=== PATIENT | female | born 1940 | race Caucasian/White ===

== ENCOUNTER → 2016-09-27 | Outpatient (CLI) | payer MEDICARE, BC ==
[~2016-09-27] MED LIST: ADVAIR 250/5028 PUFF IN; ALBUTEROL2.5 MG/NEB IH; ASPIRIN 81MG TA81 MG PO; ASPIRIN CHILDRE81 MG PO; AZELASTINE137 MCG/Ac; BUDESONIDE0.5 MG/2 M IH; CELEXA40 MG PO; CIPRO 500MG TA500 MG PO; CRESTOR10 MG PO; DIFLUCAN150 MG PO; DILANTIN 100MG100 MG PO; DUONEB 3 MG/3 ML3 ML IH; GABAPENTIN300 M1 PO; HYDROCHLOROTHIA25 M1 PO; IPRATROPIUM 2.2.5 ML IH; KAPIDEX60 MG PO; LEVAQUIN500 MG PO; LORTAB 5/500 501 TAB PO; LOSARTAN POTAS100 MG PO; LOSARTAN POTASS50 MG PO; MAGMTHWSH PO; MECLIZINE 25MG25 MG PO; MELOXICAM15 MG PO; METOPROLOL25 MG PO; NEXIUM10 MG/PACK PO; NORVASC10 MG PO; OMNICEF 300 MG300 MG PO; PERFOROMIS20 MCG/2 M IH; PHENERGAN 25MG.25 M1 PO; PREDNISONE 20MG20 MG PO; RANITIDINE HCL300 M1 PO; REGLAN 5MG TABLE5 MG PO; ROPINIROLE HYD0.5 MG PO; RT-ACCUNEB S3 ML/AMP IN; SPIRIVA HA1 PUFF/INH IH; SPORANOX100 MG PO; TAMIFLU75 MG PO; TEMAZEPAM15 MG PO; TUDORZA PR400 MCG/Ac IH; TYLENOL WITH CO1 TA1 PO; VITAMIN D1000 IU PO; XOPENEX HF0.045 MG/A IH; ZITHROMAX Z-PA250 M1 PO; ZOFRAN4 MG PO; [UNRECOGNIZED DRUG - REMARK] PO
[2016-09-27 10:08] LABS: CORONAVIRUS 229E NOT DETECTED (NOT DETECTE); CORONAVIRUS HKU 1 NOT DETECTED (NOT DETECTE); CORONAVIRUS NL63 NOT DETECTED (NOT DETECTE); CORONAVIRUS OC43 NOT DETECTED (NOT DETECTE); RHINOVIRUS/ENTEROVIRUS NOT DETECTED (NOT DETECTE)
[2016-09-27 10:28] LABS: LYMPH # 1.9 K/mm3 (0.7-4.5); LYMPH % 24.1 % (10-50.0)
[2016-09-27 10:29] LABS: HEMOGLOBIN 13.7 g/dL (12.2-16.2)
[2016-09-27 13:01] LABS: BUN 18 mg/dL (7-18)
[2016-09-27 13:14] LABS: GFR (ESTIMATED) 54 ML/MIN (59-)
== END ==
LOC: LAB 10:07
PROVIDERS: Internal Medicine Adolescent Medicine
DX: R05 Cough (principal)

== ENCOUNTER → 2017-02-09 | Outpatient (CLI) | payer MEDICARE, BC ==
--- NOTE | 2017-02-10 10:42 | RADIOLOGY REPORT PS360 ---
CTA-ABD AORTA YANETH ILEOFEM RO CLINICAL INDICATION: Lower extremity pain, claudication INTERMITTENT CLAUDICATION ORDERING PHYSICIAN: Sincere Israel MD PATIENT AGE: 76 years COMPARISON: None TECHNIQUE: Axial images obtained following the intravenous bolus administration 120 mL's of Isovue-370. Sagittal and coronal reformatted images are also reviewed. FINDINGS: Abdominal aorta no evidence of abdominal aortic aneurysm or occlusion. Mild atheromatous changes are present involving the aorta and iliac vessels. The proximal aspect of the renal arteries have an unremarkable appearance. There is some mild dilatation and be seen of the mid and distal aspect of the left main renal artery. No significant stenosis is evident. Fibromuscular dysplasia is considered.. There is mild dilatation of the distal aspect of the right internal iliac artery at 13 mm and mild dilatation of the mid aspect of the left internal iliac artery at 12 mm. No iliac stenosis evident. Right lower extremity runoff: Mild atheromatous changes are present involving the superficial femoral artery. No significant stenosis evident. There is three-vessel runoff in the calf. The vessels at the ankle are not well opacified. Three-vessel runoff is noted to the lower leg on the right and may not be visible at the ankle due to the timing of contrast injection. Left lower extremity runoff: Mild atheromatous changes of the superficial femoral artery with less than 50% stenosis of the mid aspect of the left SFA. Three-vessel runoff is noted to the lower leg on the left and may not be visible at the ankle due to the timing of injection. Nonvascular findings: There is a 3 cm right renal cyst. There is been a prior cholecystectomy. There are post hysterectomy changes. There are emphysematous changes noted in the lung bases. IMPRESSION: 1. There are mild atheromatous changes but no hemodynamic significant stenotic lesions are evident within the aorta, iliac vessels, or bilateral artery runoff 2. Mild fusiform dilatation with beading of the mid and distal aspect of the left renal artery suspicious for fibromuscular dysplasia. 3. Emphysematous changes in the lower lobes
== END ==
LOC: RAD 11:20
DX: I70.213 Atherosclerosis of native arteries of extremities with intermittent claudication, bilateral legs (principal)
CPT/HCPCS: Q9967

== ENCOUNTER → 2017-05-23 | Outpatient (CLI) | payer MEDICARE, BC ==
[2017-05-23 14:34] LABS: HEMOGLOBIN 12.5 g/dL (12.2-16.2); LYMPH # 1.6 K/mm3 (0.7-4.5)
[2017-05-23 16:00] LABS: BUN 24 mg/dL (7-18)
[2017-05-23 16:11] LABS: GFR (ESTIMATED) 61 ML/MIN (59-)
== END ==
LOC: CARL-LAB 09:59
PROVIDERS: Internal Medicine Adolescent Medicine
DX: L29.9 Pruritus, unspecified (principal); R53.81 Other malaise

== ENCOUNTER 2017-06-10 12:44 | Emergency (ER) | payer MEDICARE, BC ==
[~2017-06-10] VITALS: Ht 165.1 cm; Wt 64.0 kg
--- OUTSIDE RECORDS SUMMARY | 2017-06-10 12:50 | External Medical Summary Rpt | CCD ---
Author Author , RENATA YANEZ Address Unknown Phone [email or web address] Care Team Providers Care Air Support Operations Operator Name Role Phone Sincere Israel MD, Unavailable Unavailable Sincere Israel MD Purpose Continuity of Care Document - 04-14-2011 through 2016 Problems Code Diagnosis DOS Provider Status 486 [facility] 496 Chronic [place] obstructive [facility] lung [facility] disease 786.09 Dyspnea [facility] I73.9 PERIPHERAL VASCULAR DISEASE, UNSPECIFIED J43.9 EMPHYSEMA, UNSPECIFIED Allergies, Adverse Reactions, Alerts Type Allergy to substance Adverse Reaction to Substance Substance Reaction Severity INGREDIENT: NO KNOWN Unknown Unknown - NO KNOWN DRUG ALLERGY Medications Na ND Rx Da Fi Fi Am Da Di Ph RX Ph St me C No te ll ll ou ys ag ar # ys at rm s nt no ma ic us Or Da si cy ia de te s n re d Me 51 07 2 No to 07 -1 cl 90 0- Lo op 62 20 ng ra 92 13 er mi 0 de Ac ti 5M ve G Ta bl et Rankin 51 07 2 No cr 07 -1 al 90 0- Lo fa 87 20 ng te 12 13 er 0 1G Ac M ti Ta ve bl et PA 51 07 2 No NT 07 -1 OP 90 0- Lo RA 05 20 ng ZO 12 13 er LE 0 Ac SO ti D ve DR 40 MG TA B AD 00 07 2 No VA 17 -1 IR 30 0- Lo 69 20 ng 25 60 13 er 0- 4 50 Ac ti DI ve SK US LE 25 07 3 No VO 02 -0 FL 10 9- Lo OX 13 20 ng AC 28 13 er IN 3 Ac 75 ti 0 ve MG /1 50 ML -D 5W PI 00 07 3 No PE 40 -0 RA 93 9- Lo CI 38 20 ng L- 51 13 er TA 3 ZO Ac BA ti CT ve 3. 37 5 GM VL SO 00 07 3 No DI 40 -0 UM 97 9- Lo 98 20 ng CH 43 13 er LO 6 RI Ac DE ti ve 0. 9% SO JASPAL TI ON LO 00 07 3 No VE 07 -0 NO 50 9- Lo X 62 20 ng 40 04 13 er 1 MG Ac /0 ti .4 ve ML SY RI NG E IP 00 07 3 No RA 48 -0 T- 70 9- Lo AL 20 20 ng BU 10 13 er T 1 0. Ac 5- ti 3( ve 2. 5) MG /3 ML AC 00 07 3 No ET 57 -0 YL 40 9- Lo CY [address] 50 13 er EI 0A NE Ac ti 20 ve % 1M L SY R (R T Me 00 07 3 No th 00 -0 yl 90 9- Lo pr 19 20 ng ed 00 13 er ni 9 so Ac lo ti ne ve So d Rankin cc in a MO 00 07 3 No RP 52 -0 HI 71 9- Lo NE 42 20 ng 56 13 er RANKIN 2 LF Ac ti 10 ve 0 MG /[address] TE 51 07 3 No MA 07 -0 ZE 90 9- Lo PA 41 20 ng M 82 13 er 15 0 Ac MG ti ve CA PS UL E RE 00 07 3 No QU 00 -0 IP 74 9- Lo 89 20 ng 0. 02 13 er 25 0 Ac MG ti ve TA BL ET CE 00 06 1 No FT 40 -2 RI 97 9- Lo AX 33 20 ng ON 30 13 er E 4 1 Ac GM ti ve AL AZ 00 06 1 No IT 40 -2 HR 90 9- Lo OM 14 20 ng YC 41 13 er IN 1 Ac I. ti V. ve 50 0 MG AL SO 00 06 1 No DI 40 -2 UM 97 9- Lo 10 20 ng CH 10 13 er LO 2 RI Ac DE ti ve 0. 9% SO LN RE 00 06 0 No QU 00 -2 IP 74 9- Lo 1 89 20 ng 22 13 er MG 0 Ac TA ti BL ve ET PA 51 06 1 No NT 07 -2 OP 90 9- Lo RA 05 20 ng ZO 12 13 er LE 0 Ac SO ti D ve DR 40 MG TA B PR 11 06 1 No RA 52 -2 LA 37 9- Lo X 26 20 ng PO 80 13 er WD 8 ER Ac ti PA ve CK ET Me 51 06 1 No to 07 -2 cl 90 9- Lo op 62 20 ng ra 92 13 er mi 0 de Ac ti 5M ve G Ta bl et AC 00 06 1 No ET 57 -2 YL 40 9- Lo CY [address] 50 13 er EI 0A NE Ac ti 20 ve % 1M L SY R (R T CE 00 06 1 No FT 40 -2 RI 97 8- Lo AX 33 20 ng ON 30 13 er E 4 1 Ac GM ti ve AL SO 00 06 1 No DI 40 -2 UM 97 8- Lo 10 20 ng CH 16 13 er LO 6 RI Ac DE ti ve 0. 9% SO LN AZ 00 06 1 No IT 40 -2 HR 90 8- Lo OM 14 20 ng YC 41 13 er IN 1 Ac I. ti V. ve 50 0 MG AL LO 00 06 2 No VE 07 -2 NO 50 8- Lo X 62 20 ng 40 04 13 er 1 MG Ac /0 ti .4 ve ML SY RI NG E SO 00 06 2 No JASPAL 00 -2 -M 90 8- Lo ED 04 20 ng RO 72 13 er L 2 12 Ac 5 ti MG ve AL MA 00 06 2 No PA 90 -2 P 41 8- Lo 32 98 20 ng 5 26 13 er MG 1 Ac TA ti BL ve ET IP 00 06 2 No RA 48 -2 T- 70 8- Lo AL 20 20 ng BU 10 13 er T 1 0. Ac 5- ti 3( ve 2. 5) MG /3 ML OR 51 06 2 No AV 07 -2 90 8- Lo TA 45 20 ng TI 82 13 er N 0 SO Ac DI ti UM ve 20 MG TA B AD 00 06 2 No VA 17 -2 IR 30 8- Lo 69 20 ng 25 60 13 er 0- 4 50 Ac ti DI ve SK US Vital Signs 02-22-2013 10:19 Name Value Interpretat Reference Comment ion Range Body 97.7 [degF] Temperature BP 70 mm[Hg] Diastolic BP Systolic 138 mm[Hg] Heart 89 /min Rate/Pulse Respiratory 20 /min Rate 02-22-2013 07:44 Name Value Interpretat Reference Comment ion Range O2% 95 % 02-19-2013 11:19 Name Value Interpretat Reference Comment ion Range O2% 95 % 02-19-2013 10:20 Name Value Interpretat Reference Comment ion Range Body 97.9 [degF] Temperature BP 86 mm[Hg] Diastolic BP Systolic 144 mm[Hg] Heart 85 /min Rate/Pulse Height 165.10 cm Respiratory 22 /min Rate Weight 129 [lb_av] Measured Weight 58.514 kg Measured 02-10-2013 10:12 Name Value Interpretat Reference Comment ion Range Body 97.5 [degF] Temperature BP 64 mm[Hg] Diastolic BP Systolic 125 mm[Hg] Heart 89 /min Rate/Pulse Respiratory 16 /min Rate 02-10-2013 08:00 Name Value Interpretat Reference Comment ion Range O2% 96 % 02-08-2013 20:00 Name Value Interpretat Reference Comment ion Range O2% 95 % 02-08-2013 17:00 Name Value Interpretat Reference Comment ion Range Body 97.5 [degF] Temperature BP 96 mm[Hg] Diastolic BP Systolic 156 mm[Hg] Heart 81 /min Rate/Pulse Height 166.37 cm Respiratory 20 /min Rate Weight 129 [lb_av] Measured Weight 58.514 kg Measured Results Labs Lab Lab Date Result Refere Interp Status Commen Order Detail nces retati t Range on Vitamin B12 ser/plas (05-23-2017 10:00) Vitamin = 273 211-946 complet B12 017 pg/mL ed ser/sheila 10:00 s Comment: Performed at: [facility] Comment: [address], [place] [id number] Comment: Faculty Administrator: Silvio Barrientos PhD, Phone: [phone] Creat Bld-mCnc (11-09-2016 15:52) Creat 0.90 0.60-1. complet BldA-mC 017 mg/dL 30 ed nc 15:52 Comment: Serial Number: [id number] Account Support Manager: [id number] ARTERIAL BLOOD GAS (02-20-2013 17:16) ARTERIA 7.38 7.35-7. complet L PH 013 MMOL/L 45 ed 17:16 ARTERIA 38.8 35.0-45 complet L PCO2 013 MMHG .0 ed 17:16 ARTERIA 96.6 80-100 complet L PO2 013 MMHG ed 17:16 ARTERIA 22.4 22.0-26 complet L HCO3 013 MMOL/L .0 ed 17:16 ARTERIA 23.6 23-27 complet L TCO2 013 MMOL/L ed 17:16 Base 07-10-2 -2.7 -2.4-+2 complet excess 013 MMOL/L .3 ed BldA-sC 17:16 nc ARTERIA 97.5 % 90-100 complet L O2 013 ed SAT 17:16 OXYGEN 28%, complet 013 2LPM ed 17:16 N/C Arteria ACCEPTA complet l 013 BLE ed patency 17:16 Wrist a BASIC METABOLIC PANEL (02-20-2013 06:40) Glucose 167 74-106 complet 013 mg/dL ed Bld-mCn 06:40 c BUN 10 7-18 complet Bld-mCn 013 mg/dL ed c 06:40 Creat 0.9 0.6-1.0 complet SerPl-m 013 mg/dL ed Cnc 06:40 ESTIMAT 53 50-200 complet ED 013 ML/MIN ed CREATIN 06:40 INE CLEARAN CE GFR 62 59- complet (ESTIMA 013 ML/MIN ed ANAHI) 06:40 Sodium 02-20- 138 136-145 complet SerPl-s 013 mmoL/L ed Cnc 06:40 Potassi 3.9 3.5-5.1 complet um 013 mmoL/L ed SerPl-s 06:40 Cnc Chlorid 105 98-107 complet e 013 mmoL/L ed SerPl-s 06:40 Cnc CO2 02-20- 25 21.0-32 complet SerPl-s 013 mmoL/L .0 ed Cnc 06:40 Calcium 02-20- 9.1 8.5-10. complet 013 mg/dL 1 ed SerPl-m 06:40 Cnc CBC with AUTO DIFF (02-20-2013 06:40) WBC # -10-2 11.3 4.8-10. complet Bld 013 K/MM3 8 ed Auto 06:40 RBC # 07-10-2 4.58 4.2-5.4 complet Bld 013 M/mm3 ed Auto 06:40 Hgb 02-20- 12.6 12.2-16 complet Bld-mCn 013 g/dL .2 ed c 06:40 Hct Fr 39.8 % 37.0-47 complet Bld 013 .0 ed 06:40 MCV RBC 07-10-2 86.9 fl 82.2-97 complet 013 .8 ed 06:40 MCH RBC 07-10-2 27.5 pg 27-31.2 complet Qn 013 ed Auto 06:40 MEAN 07-10-2 31.7 31.8-35 complet CORPUSC 013 g/dl .4 ed ULAR 06:40 HGB CONC RDW RBC 07-10-2 14.9 % 11.5-17 complet Auto 013 .5 ed 06:40 Platele 07-10-2 262 142-424 complet t Bld 013 K/mm3 ed Ql 06:40 Manual MEAN 07-10-2 7.4 fl 7.4-10. complet PLATELE 013 4 ed T 06:40 VOLUME Granulo 07-10-2 91.1 % 37.0-80 complet cytes 013 .0 ed Fr Bld 06:40 Auto LYMPH % 07-10-2 6.3 % 10-50.0 complet 013 ed 06:40 Monocyt 07-10-2 2.5 % 1.7-9.3 complet es Fr 013 ed Bld 06:40 Auto Eosinop 07-10-2 0.0 % 0.1-12. complet hil Fr 013 0 ed Bld 06:40 Auto Basophi 07-10-2 0.0 % 0.1-2.0 complet ls Fr 013 ed Bld 06:40 Auto Granulo 07-10-2 10.3 1.8-7.8 complet cytes # 013 K/mm3 ed Bld 06:40 Auto Lymphoc 07-10-2 0.7 0.7-4.5 complet ytes Fr 013 K/mm3 ed Bld 06:40 Auto Monocyt 07-10-2 0.3 0.1-1.0 complet es # 013 K/mm3 ed Bld 06:40 Auto Eosinop 07-10-2 0.0 0.0-0.4 complet hil # 013 K/mm3 ed Bld 06:40 Auto Basophi 07-10-2 0.0 0-0.2 complet ls # 013 K/MM3 ed Bld 06:40 Auto COMPREHENSIVE METABOLIC PANEL (02-19-2013 10:35) Glucose 0709-2 92 74-106 complet 013 mg/dL ed Bld-mCn 10:35 c BUN 07-09-2 15 7-18 complet Bld-mCn 013 mg/dL ed c 10:35 Creat 0.9 0.6-1.0 complet SerPl-m 013 mg/dL ed Cnc 10:35 ESTIMAT 53 50-200 complet ED 013 ML/MIN ed CREATIN 10:35 INE CLEARAN CE GFR 62 59- complet (ESTIMA 013 ML/MIN ed ANAHI) 10:35 Sodium 142 136-145 complet SerPl-s 013 mmoL/L ed Cnc 10:35 Potassi 4.2 3.5-5.1 complet um 013 mmoL/L ed SerPl-s 10:35 Cnc Chlorid 107 98-107 complet e 013 mmoL/L ed SerPl-s 10:35 Cnc CO2 27 21.0-32 complet SerPl-s 013 mmoL/L .0 ed Cnc 10:35 Calcium 8.7 8.5-10. complet 013 mg/dL 1 ed SerPl-m 10:35 Cnc Prot 6.9 6.4-8.2 complet SerPl-m 013 gm/dL ed Cnc 10:35 Albumin 3.2 3.4-5.0 complet 013 gm/dL ed SerPl-m 10:35 Cnc Globuli 3.7 1.3-3.2 complet n 013 gm/dL ed Ser-mCn 10:35 c Albumin 0.9 UNK 1.1-1.8 complet /Glob 013 ed SerPl-m 10:35 Rto Bilirub 0.2 0.2-1.0 complet 013 mg/dL ed SerPl-m 10:35 Cnc AST 10 U/L 15-37 complet SerPl-c 013 ed Cnc 10:35 ALT 38 U/L 30-65 complet SerPl-c 013 ed Cnc 10:35 ALP 116 U/L 50-136 complet SerPl-c 013 ed Cnc 10:35 THYROID STIM HORMONE (02-19-2013 10:35) THYROID 2.28 0.358-3 complet STIM 013 uIU/ml .740 ed HORMONE 10:35 CBC with AUTO DIFF (02-19-2013 10:35) WBC # 07-09-2 8.7 4.8-10. complet Bld 013 K/MM3 8 ed Auto 10:35 RBC # 07-09-2 5.06 4.2-5.4 complet Bld 013 M/mm3 ed Auto 10:35 Hgb -09-2 14.2 12.2-16 complet Bld-mCn 013 g/dL .2 ed c 10:35 Hct Fr 02-19-2 44.4 % 37.0-47 complet Bld 013 .0 ed 10:35 MCV RBC 09-2 87.7 fl 82.2-97 complet 013 .8 ed 10:35 MCH RBC 09-2 28.1 pg 27-31.2 complet Qn 013 ed Auto 10:35 MEAN 02-19-2 32.0 31.8-35 complet CORPUSC 013 g/dl .4 ed ULAR 10:35 HGB CONC RDW RBC 02-19-2 15.0 % 11.5-17 complet Auto 013 .5 ed 10:35 Platele -09-2 323 142-424 complet t Bld 013 K/mm3 ed Ql 10:35 Manual MEAN 02-19-2 7.6 fl 7.4-10. complet PLATELE 013 4 ed T 10:35 VOLUME Granulo -09-2 66.8 % 37.0-80 complet cytes 013 .0 ed Fr Bld 10:35 Auto LYMPH % 09-2 24.5 % 10-50.0 complet 013 ed 10:35 Monocyt -09-2 5.6 % 1.7-9.3 complet es Fr 013 ed Bld 10:35 Auto Eosinop -09-2 2.4 % 0.1-12. complet hil Fr 013 0 ed Bld 10:35 Auto Basophi -09-2 0.7 % 0.1-2.0 complet ls Fr 013 ed Bld 10:35 Auto Granulo 07-09-2 5.8 1.8-7.8 complet cytes # 013 K/mm3 ed Bld 10:35 Auto Lymphoc -09-2 2.1 0.7-4.5 complet ytes Fr 013 K/mm3 ed Bld 10:35 Auto Monocyt 07-09-2 0.5 0.1-1.0 complet es # 013 K/mm3 ed Bld 10:35 Auto Eosinop 07-09-2 0.2 0.0-0.4 complet hil # 013 K/mm3 ed Bld 10:35 Auto Basophi 07-09-2 0.1 0-0.2 complet ls # 013 K/MM3 ed Bld 10:35 Auto CBC with AUTO DIFF (02-09-2013 06:10) WBC # 06-29-2 4.6 4.8-10. complet Bld 013 K/MM3 8 ed Auto 06:10 RBC # -29-2 4.85 4.2-5.4 complet Bld 013 M/mm3 ed Auto 06:10 Hgb 02-09-2 13.4 12.2-16 complet Bld-mCn 013 g/dL .2 ed c 06:10 Hct Fr 02-09-2 42.2 % 37.0-47 complet Bld 013 .0 ed 06:10 MCV RBC 02-09-2 87.2 fl 82.2-97 complet 013 .8 ed 06:10 MCH RBC 02-09-2 27.7 pg 27-31.2 complet Qn 013 ed Auto 06:10 MEAN 02-09-2 31.8 31.8-35 complet CORPUSC 013 g/dl .4 ed ULAR 06:10 HGB CONC RDW RBC 02-09-2 14.5 % 11.5-17 complet Auto 013 .5 ed 06:10 Platele 02-09-2 264 142-424 complet t Bld 013 K/mm3 ed Ql 06:10 Manual MEAN 02-09-2 7.8 fl 7.4-10. complet PLATELE 013 4 ed T 06:10 VOLUME Granulo 02-09-2 75.4 % 37.0-80 complet cytes 013 .0 ed Fr Bld 06:10 Auto LYMPH % 29-2 21.0 % 10-50.0 complet 013 ed 06:10 Monocyt 29-2 3.1 % 1.7-9.3 complet es Fr 013 ed Bld 06:10 Auto Eosinop -29-2 0.5 % 0.1-12. complet hil Fr 013 0 ed Bld 06:10 Auto Basophi 02-09-2 0.1 % 0.1-2.0 complet ls Fr 013 ed Bld 06:10 Auto Granulo 2 3.5 1.8-7.8 complet cytes # 013 K/mm3 ed Bld 06:10 Auto Lymphoc 02-09-2 1.0 0.7-4.5 complet ytes Fr 013 K/mm3 ed Bld 06:10 Auto Monocyt 02-09-2 0.1 0.1-1.0 complet es # 013 K/mm3 ed Bld 06:10 Auto Eosinop 02-09-2 0.0 0.0-0.4 complet hil # 013 K/mm3 ed Bld 06:10 Auto Basophi 02-09-2 0.0 0-0.2 complet ls # 013 K/MM3 ed Bld 06:10 Auto BASIC METABOLIC PANEL (02-08-2013 18:10) Glucose 99 74-106 complet 013 mg/dL ed Bld-mCn 18:10 c BUN 13 7-18 complet Bld-mCn 013 mg/dL ed c 18:10 Creat 0.9 0.6-1.0 complet SerPl-m 013 mg/dL ed Cnc 18:10 GFR 62 59- complet (ESTIMA 013 ML/MIN ed ANAHI) 18:10 Sodium 139 136-145 complet SerPl-s 013 mmoL/L ed Cnc 18:10 Potassi 4.0 3.5-5.1 complet um 013 mmoL/L ed SerPl-s 18:10 Cnc Chlorid 104 98-107 complet e 013 mmoL/L ed SerPl-s 18:10 Cnc CO2 27 21.0-32 complet SerPl-s 013 mmoL/L .0 ed Cnc 18:10 Calcium 9.1 8.5-10. complet 013 mg/dL 1 ed SerPl-m 18:10 Cnc MYCOPLASMA IGM (RAPID) (02-08-2013 18:10) MYCOPLA 2 NON-TAD NONREAC complet SMA IGM 013 CTIVE TIVE ed 18:10 (RAPID) CBC with AUTO DIFF (02-08-2013 17:55) WBC # 02-08-2 7.1 4.8-10. complet Bld 013 K/MM3 8 ed Auto 17:55 RBC # 0628-2 4.94 4.2-5.4 complet Bld 013 M/mm3 ed Auto 17:55 Hgb 02-08-2 13.9 12.2-16 complet Bld-mCn 013 g/dL .2 ed c 17:55 Hct Fr 02-08-2 42.8 % 37.0-47 complet Bld 013 .0 ed 17:55 MCV RBC 02-08-2 86.7 fl 82.2-97 complet 013 .8 ed 17:55 MCH RBC 02-08-2 28.2 pg 27-31.2 complet Qn 013 ed Auto 17:55 MEAN 02-08-2 32.5 31.8-35 complet CORPUSC 013 g/dl .4 ed ULAR 17:55 HGB CONC RDW RBC 02-08-2 14.6 % 11.5-17 complet Auto 013 .5 ed 17:55 Platele 02-08-2 293 142-424 complet t Bld 013 K/mm3 ed Ql 17:55 Manual MEAN 2 7.9 fl 7.4-10. complet PLATELE 013 4 ed T 17:55 VOLUME Granulo 02-08-2 69.5 % 37.0-80 complet cytes 013 .0 ed Fr Bld 17:55 Auto LYMPH % --2 22.8 % 10-50.0 complet 013 ed 17:55 Monocyt 02-08-2 4.8 % 1.7-9.3 complet es Fr 013 ed Bld 17:55 Auto Eosinop -28-2 2.0 % 0.1-12. complet hil Fr 013 0 ed Bld 17:55 Auto Basophi -28-2 0.9 % 0.1-2.0 complet ls Fr 013 ed Bld 17:55 Auto Granulo 06-28-2 4.9 1.8-7.8 complet cytes # 013 K/mm3 ed Bld 17:55 Auto Lymphoc -28-2 1.6 0.7-4.5 complet ytes Fr 013 K/mm3 ed Bld 17:55 Auto Monocyt -28-2 0.3 0.1-1.0 complet es # 013 K/mm3 ed Bld 17:55 Auto Eosinop 06-28-2 0.1 0.0-0.4 complet hil # 013 K/mm3 ed Bld 17:55 Auto Basophi 0.1 0-0.2 complet ls # 013 K/MM3 ed Bld 17:55 Auto Mycobacterium sp identified in Unspecified specimen by Organism specific culture (04-14-2011 13:15) SPECIME ISOLATE complet N TYPE 011 ed 13:15 COLLECT CENTRAL complet OR 011 ed 13:[address] [facility] [address] [address] FITZGERALD complet AN 011 ed 13:15 TB MEDS UNKNOWN complet 011 ed 13:15 TB MEDS NA complet START 011 ed DATE 13:15 SPECIME LUNG complet N 011 TISSUE ed SOURCE 13:15 DATE complet COLLECT 011 011 ed ED 13:15 CHART [id number] complet NUMBER 011 [id number] ed 13:15 [id number] Mycobac MYCOBAC complet terium 011 TERIUM ed sp 13:15 AVIUM [Presen COMPLEX ce] in BY DNA Unspeci PROBE fied specime n by Organis m specifi c culture Encounters Encounter Start End Date Code Location Performer Type Date Inpatient IMP (IN) 3 09:57 3 10:25 Inpatient IMP Keyshawn Israel MD ([place]) 3 17:00 3 10:13 [facility]
--- OUTSIDE RECORDS SUMMARY | 2017-06-10 12:50 | External Medical Summary Rpt | CCD ---
Author Author , RENATA YANEZ Address Unknown Phone [email or web address] Care Team Providers Care Small Equipment Operator Name Role Phone Sincere Israel MD, Unavailable Unavailable Sincere Israel MD Purpose Continuity of Care Document - 04-14-2011 through 2016 Problems Code Diagnosis DOS Provider Status [address] 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 5) MG /3 ML LA 51 06 2 No AV 07 -2 [...] ed ser/sheila 10:00 s Comment: Performed at: [facility] Comment: [id number], [place] [id number] Comment: Menswear Salesperson: Silvio Barrientos PhD, Phone: [phone] Creat Bld-mCnc (11-09-2016 15:52) Creat 0.90 0.60-1. complet BldA-mC 017 mg/dL 30 ed nc 15:52 Comment: Serial Number: [id number] Phlebotomy Instructor: [id number] ARTERIAL BLOOD GAS (02-20-2013 17:16) ARTERIA 7.38 [...] COLLECT CENTRAL complet OR 011 ed 13:[address] [facility] [address] [address] FITZGERALD complet AN 011 ed 13:15 TB MEDS UNKNOWN complet 011 ed 13:15 TB MEDS NA complet START 011 ed DATE 13:15 SPECIME LUNG complet N 011 TISSUE ed SOURCE 13:15 DATE complet COLLECT 011 011 ed ED 13:15 CHART [id number] complet NUMBER 011 [id number]/C1 ed 13:15 [id number] Mycobac MYCOBAC complet terium 011 TERIUM ed sp 13:15 AVIUM [Presen COMPLEX ce] in BY DNA Unspeci PROBE fied specime n by Organis m specifi c culture Encounters Encounter Start End Date Code Location Performer Type Date Inpatient IMP (IN) 3 09:57 3 10:25 Inpatient IMP Keyshawn Israel MD ([place]) 3 17:00 3 10:13 [facility]
--- OUTSIDE RECORDS SUMMARY | 2017-06-10 12:51 | External Medical Summary Rpt | CCD ---
Author Author [employer] Organization [employer] Address Unknown Phone Unavailable Purpose Continuity of Care Document - through 2016
--- OUTSIDE RECORDS SUMMARY | 2017-06-10 12:51 | External Medical Summary Rpt ---
Author Author RENATA Robin, [employer] Organization [employer] Address Unknown Phone Unavailable Results Cobalamin (Vitamin B12) [Mass/volume] in Serum Observa Value Referen Units Interpr Notes Date tion ce etation Range Cobalamin 211 - 946 pg/mL No Performed May 23 (Vitamin informati at: CB 2017 B12) on in - [facility] 10:00 AM [Mass/vol source ume] in data [place] [address] Serum 0 [place], [place] [id number] [employer] Plate Setter: Silvio Barrientos PhD, Phone: [phone] Comprehensive metabolic 2000 panel in Serum or Plasma Observa Value Referen Units Interpr Notes Date tion ce etation Range Albumin/G 1.1 - 1.8 No Normal No May 23 lobulin informati informati 2016 [Mass on in on in 10:00 AM ratio] in source source Serum or data data Plasma Albumin 3.4 - 5.0 gm/dL Normal No May 23 [Mass/vol informati 2016 ume] in on in 10:00 AM Serum or source Plasma data Alkaline 46 - 116 U/L Normal No May 23 phosphata informati 2017 se on in 10:00 AM [Enzymati source c data activity/ volume] in Serum or Plasma Bilirubin 0.2 - 1.0 mg/dL Normal No May 23 .total informati 2017 [Mass/vol on in 10:00 AM ume] in source Serum or data Plasma Urea 7 - 18 mg/dL High No May 23 nitrogen informati 2017 [Mass/vol on in 10:00 AM ume] in source Serum or data Plasma Calcium 8.5 - mg/dL Normal No May 23 [Mass/vol 10.1 informati 2017 ume] in on in 10:00 AM Serum or source Plasma data Chloride 98 - 107 mmoL/L Normal No May 23 [Moles/vo informati 2016 lume] in on in 10:00 AM Serum or source Plasma data Carbon 21.0 - mmoL/L Normal No May 10 dioxide, 32.0 informati 2017 total on in 10:00 AM [Moles/vo source lume] in data Serum or Plasma Creatinin 0.55 - mg/dL Normal No May 23 e 1.02 informati 2016 [Mass/vol on in 10:00 AM ume] in source Serum or data Plasma Estimated 59- ML/MIN No REFERENCE May 23 informati RANGE: 2017 glomerula on in >60 10:00 AM r source ML/MIN/1. filtratio data 73 SQUARE n rate METERSIf (GF this patient is -A merican, then multiply theresult by 1.210. Globulin 1.3 - 3.2 gm/dL Normal No May 23 [Mass/vol informati 2016 ume] in on in 10:00 AM Serum source data Glucose 74 - 106 mg/dL Normal No May 23 [Mass/vol informati 2016 ume] in on in 10:00 AM Serum or source Plasma data Potassium 3.5 - 5.1 mmoL/L Normal No May [id number] [Moles/vo on in 10:00 AM lume] in source Serum or data Plasma Sodium 136 - 145 mmoL/L Normal No May 23 [Moles/vo informati 2017 lume] in on in 10:00 AM Serum or source Plasma data Aspartate 15 - 37 U/L Normal No May 232016 aminotran on in 10:00 AM sferase source [Enzymati data c activity/ volume] in Serum or Plasma Alanine 12 - 78 U/L Normal No May 23 aminotran 2016 sferase on in 10:00 AM [Enzymati source c data activity/ volume] in Serum or Plasma Protein 6.4 - 8.2 gm/dL Normal No May 23 [Mass/vol informati 2016 ume] in on in 10:00 AM Serum or source Plasma data CBC W Auto Differential panel in Blood Observa Value Referen Units Interpr Notes Date tion ce etation Range Basophils 0 - 0.2 K/MM3 Normal No May 23 inform2016 [#/volume on in 10:00 AM ] in source Blood by data Automated count Basophils 0.1 - 2.0 % Normal No May 23 /100 informati 2016 leukocyte on in 10:00 AM s in source Blood by data Automated count Eosinophi 0.0 - 0.4 K/mm3 Normal No May 23 ls ati 2016 [#/volume on in 10:00 AM ] in source Blood by data Automated count Eosinophi 0.1 - % Normal No May 23 ls/100 12.0 informati 2016 leukocyte on in 10:00 AM s in source Blood by data Automated count Granulocy 1.8 - 7.8 K/mm3 Normal No May 10 marylin informati 2016 [#/volume on in 10:00 AM ] in source Blood by data Automated count Granulocy 37.0 - % Normal No May 23 marylin/100 80.0 informati 2016 leukocyte on in 10:00 AM s in source Blood by data Automated count Hematocri 37.0 - % Normal No May 23 t [Volume 47.0 informati 2016 on in 10:00 AM Fraction] source of Blood data Hemoglobi 12.2 - g/dL Normal No May 23 n 16.2 informati 2016 [Mass/vol on in 10:00 AM ume] in source Blood data Lymphocyt 0.7 - 4.5 K/mm3 Normal No May 23 es informati 2016 [#/volume on in 10:00 AM ] in source Unspecifi data ed specimen by Automated count Lymphocyt 10 - 50.0 % Normal No May 23 es informati 2016 [#/volume on in 10:00 AM ] in source Unspecifi data ed specimen by Automated count Erythrocy 27 - 31.2 pg Normal No May 23 te mean inform2016 corpuscul on in 10:00 AM ar source hemoglobi data n [Entitic mass] Erythrocy 31.8 - g/dl Low No May 23 te mean 35.4 informati 2016 corpuscul on in 10:00 AM ar source hemoglobi data n concentra tion [Mass/vol ume] by Automated count Erythrocy 82.2 - fl Normal No May 23 te mean 97.8 informati 2016 corpuscul on in 10:00 AM ar volume source [Entitic data volume] by Automated count Monocytes 0.1 - 1.0 K/mm3 Normal No May 23 inform2016 [#/volume on in 10:00 AM ] in source Blood by data Automated count Monocytes 1.7 - 9.3 % Normal No May 23 inform2016 leukocyte on in 10:00 AM s in source Blood by data Automated count Platelet 7.4 - fl Normal No May 23 mean 10.4 informati 2016 volume on in 10:00 AM [Entitic source volume] data in Blood by Automated count Platelets 142 - 424 K/mm3 Normal No May 10 informati 2016 [#/volume on in 10:00 AM ] in source Blood data Erythrocy 4.2 - 5.4 M/mm3 Normal No May 10 marylin informati 2016 [#/volume on in 10:00 AM ] in source Amniotic data fluid Erythrocy 11.5 - % Normal No May 23 te 17.5 informati 2017 distribut on in 10:00 AM ion width source [Entitic data volume] by Automated count Leukocyte 4.8 - K/MM3 Normal No May 10 s 10.8 informati 2016 [#/volume on in 10:00 AM ] in source Blood data Cobalamin (Vitamin B12) [Mass/volume] in Serum Observa Value Referen Units Interpr Notes Date tion ce etation Range Cobalamin 211 - 946 pg/mL No Performed Feb 02 (Vitamin informati at: CB 2017 B12) on in - [facility] 10:30 AM [Mass/vol source ume] in data [address] [place] [address] Serum 0 [place], [place] [id number] [employer] Plate Setter: Silvio Barrientos PhD, Phone: [phone] 25-Hydroxyvitamin D [Mass/volume] in Serum or Plasma Observa Value Referen Units Interpr Notes Date tion ce etation Range 25-Hydrox 30.0 - ng/mL Low Vitamin D Feb 02 yvitamin 100.0 2017 D deficienc 10:30 AM [Mass/vol y has ume] in been Serum or defined Plasma by the [place] [facility] e and an Endocrine Society practice guideline as alevel of serum 25-OH vitamin D less than 20 ng/mL (1,2).The Endocrine Society went on to further define vitamin Dinsuffic iency as a level between 21 and 29 ng/mL (2).1. IOM (Institut e of Medicine) . 2010. Dietary reference intakes for calcium and D. Ozzy jacome DC: [employer]ation al Academies Press.2. Merline MF, Jolie NC, Chai Reeves YBARRA, et al.Evalua tion, treatment , and preventio n of vitamin Ddeficien cy: an Endocrine Society clinical practiceg uideline. JCEM. 2010; 96(7):191 1-30. CBC W Auto Differential panel in Blood Observa Value Referen Units Interpr Notes Date tion ce etation Range Basophils 0 - 0.2 K/MM3 Normal No Feb 02 informati 2016 [#/volume on in 10:30 AM ] in source Blood by data Automated count Basophils 0.1 - 2.0 % Normal No Feb 02 /100 informati 2016 leukocyte on in 10:30 AM s in source Blood by data Automated count Eosinophi 0.0 - 0.4 K/mm3 Normal No Feb 02 ls informati 2016 [#/volume on in 10:30 AM ] in source Blood by data Automated count Eosinophi 0.1 - % Normal No Feb 02 ls/100 12.0 informati 2016 leukocyte on in 10:30 AM s in source Blood by data Automated count Granulocy 1.8 - 7.8 K/mm3 Normal No Feb 02 marylin informati 2016 [#/volume on in 10:30 AM ] in source Blood by data Automated count Granulocy 37.0 - % Normal No Feb 02 marylin/100 80.0 informati 2016 leukocyte on in 10:30 AM s in source Blood by data Automated count Hematocri 37.0 - % Normal No Feb 02 t [Volume 47.0 informati 2016 on in 10:30 AM Fraction] source of Blood data Hemoglobi 12.2 - g/dL Normal No Feb 02 n 16.2 informati 2016 [Mass/vol on in 10:30 AM ume] in source Blood data Lymphocyt 0.7 - 4.5 K/mm3 Normal No Feb 02 es informati 2016 [#/volume on in 10:30 AM ] in source Unspecifi data ed specimen by Automated count Lymphocyt 10 - 50.0 % Normal No Feb 02 es informati 2016 [#/volume on in 10:30 AM ] in source Unspecifi data ed specimen by Automated count Erythrocy 27 - 31.2 pg Normal No Feb 02 te mean informati 2016 corpuscul on in 10:30 AM ar source hemoglobi data n [Entitic mass] Erythrocy 31.8 - g/dl Normal No Feb 02 te mean 35.4 informati 2016 corpuscul on in 10:30 AM ar source hemoglobi data n concentra tion [Mass/vol ume] by Automated count Erythrocy 82.2 - fl Normal No Feb 02 te mean 97.8 informati 2016 corpuscul on in 10:30 AM ar volume source [Entitic data volume] by Automated count Monocytes 0.1 - 1.0 K/mm3 Normal No Feb 02 informati 2016 [#/volume on in 10:30 AM ] in source Blood by data Automated count Monocytes 1.7 - 9.3 % Normal No Feb 02 /100 informati 2016 leukocyte on in 10:30 AM s in source Blood by data Automated count Platelet 7.4 - fl Normal No Feb 02 mean 10.4 inform2016 volume on in 10:30 AM [Entitic source volume] data in Blood by Automated count Platelets 142 - 424 K/mm3 Normal No Feb 02 informati 2016 [#/volume on in 10:30 AM ] in source Blood data Erythrocy 4.2 - 5.4 M/mm3 Normal No Feb 02 marylin informati 2016 [#/volume on in 10:30 AM ] in source Amniotic data fluid Erythrocy 11.5 - % Normal No Feb 02 te 17.5 informati 2016 distribut on in 10:30 AM ion width source [Entitic data volume] by Automated count Leukocyte 4.8 - K/MM3 Normal No Feb 02 s 10.8 informati 2016 [#/volume on in 10:30 AM ] in source Blood data Comprehensive metabolic 2000 panel in Serum or Plasma Observa Value Referen Units Interpr Notes Date tion ce etation Range Albumin/G 1.1 - 1.8 No Normal No Feb 02 lobulin informati informati 2016 [Mass on in on in 10:30 AM ratio] in source source Serum or data data Plasma Albumin 3.4 - 5.0 gm/dL Normal No Feb 02 [Mass/vol informati 2016 ume] in on in 10:30 AM Serum or source Plasma data Alkaline 46 - 116 U/L Normal No Feb 02 phosphata informati 2016 se on in 10:30 AM [Enzymati source c data activity/ volume] in Serum or Plasma Bilirubin 0.2 - 1.0 mg/dL Normal No Feb 02 .total informati 2016 [Mass/vol on in 10:30 AM ume] in source Serum or data Plasma Urea 7 - 18 mg/dL Normal No Feb 02 nitrogen informati 2016 [Mass/vol on in 10:30 AM ume] in source Serum or data Plasma Calcium 8.5 - mg/dL Normal No Feb 02 [Mass/vol 10.1 informati 2016 ume] in on in 10:30 AM Serum or source Plasma data Chloride 98 - 107 mmoL/L Normal No Feb 02 [Moles/vo informati 2016 lume] in on in 10:30 AM Serum or source Plasma data Carbon 21.0 - mmoL/L Normal No Feb 02 dioxide, 32.0 inform2016 total on in 10:30 AM [Moles/vo source lume] in data Serum or Plasma Creatinin 0.55 - mg/dL Normal No Feb 02 e 1.02 inform2016 [Mass/vol on in 10:30 AM ume] in source Serum or data Plasma Estimated 59- ML/MIN Low REFERENCE Feb 02 RANGE: 2017 glomerula >60 10:30 AM r ML/MIN/1. filtratio 73 SQUARE n rate METERSIf (GF this patient is -A merican, then multiply theresult by 1.210. Globulin 1.3 - 3.2 gm/dL Normal No Feb 02 [Mass/vol informati 2016 ume] in on in 10:30 AM Serum source data Glucose 74 - 106 mg/dL Normal No Feb 02 [Mass/vol informati 2016 ume] in on in 10:30 AM Serum or source Plasma data Potassium 3.5 - 5.1 mmoL/L Normal No Feb 022016 [Moles/vo on in 10:30 AM lume] in source Serum or data Plasma Sodium 136 - 145 mmoL/L Normal No Feb 02 [Moles/vo informati 2016 lume] in on in 10:30 AM Serum or source Plasma data Aspartate 15 - 37 U/L Normal No Feb 022016 aminotran on in 10:30 AM sferase source [Enzymati data c activity/ volume] in Serum or Plasma Alanine 12 - 78 U/L Normal No Feb 02 aminotran 2016 sferase on in 10:30 AM [Enzymati source c data activity/ volume] in Serum or Plasma Protein 6.4 - 8.2 gm/dL Normal No Feb 02 [Mass/vol informati 2016 ume] in on in 10:30 AM Serum or source Plasma data Magnesium [Moles/volume] in Unspecified specimen Observa Value Referen Units Interpr Notes Date tion ce etation Range Magnesium 1.4 - 2.2 mg/dL Normal No Feb 02 inform2016 [Moles/vo on in 10:30 AM lume] in source Unspecifi data ed specimen Thyrotropin [Units/volume] in Serum or Plasma Observa Value Referen Units Interpr Notes Date tion ce etation Range Thyrotrop 0.358 - uIU/ml No No Feb 02 in 3.740 informati informati 2017 [Units/vo on in on in 10:30 AM lume] in source source Serum or data data Plasma Mycobacterium sp identified in Unspecified specimen by Organism specific culture Observa Value Referen Units Interpr Notes Date tion ce etation Range SPECIME ISOLATE No No No No Sep 1 N TYPE informa informa informa informa 2011 tion in tion in tion in tion in 1:15 PM source source source source data data data data COLLECT CENTRAL No No No No Sep 1 OR informa informa informa informa 2011 HINDU tion in tion in tion in tion in 1:15 PM source source source source HOSPITA data data data data L PHYSICI DR FITZGERALD No No No No Sep 1 AN informa informa informa informa 2011 tion in tion in tion in tion in 1:15 PM source source source source data data data data TB MEDS UNKNOWN No No No No Sep 1 informa informa informa informa 2011 tion in tion in tion in tion in 1:15 PM source source source source data data data data TB MEDS NA No No No No Sep 1 START informa informa informa informa 2011 DATE tion in tion in tion in tion in 1:15 PM source source source source data data data data SPECIME LUNG No No No No Sep 1 N TISSUE informa informa informa informa 2011 SOURCE tion in tion in tion in tion in 1:15 PM source source source source data data data data DATE No No No No Sep 1 COLLECT 011 informa informa informa informa 2011 ED tion in tion in tion in tion in 1:15 PM source source source source data data data data CHART [id number] No No No No Sep 1 NUMBER 5004/C1 informa informa informa informa 2010 [id number] tion in tion in tion in tion in 1:15 PM 9 source source source source data data data data Mycobac MYCOBAC No No No METHOD Sep 1 terium TERIUM informa informa informa OF 2010 sp AVIUM tion in tion in tion in ANALYSI 1:15 PM [Presen COMPLEX source source source S: MGIT ce] in BY DNA data data data 960 Unspeci PROBE GROWTH fied TUBE specime AND LJ n by SLANT Organ[employer] FOR m [facility] specifi L c SPECIME culture [id number] SLANT, POSSIBL E TAB BROTH FOR REFERRE D ISOLATE S. POSSIBL E DNA PROBE,H PLC.NOR MAL RANGE: NO ACID FAST BACILLI \.br\Th is report contain s patient informa tion that must be protect ed in accorda nce with the Health Insuran ce Portabi lity and Account ability Act.
--- OUTSIDE RECORDS SUMMARY | 2017-06-10 12:51 | External Medical Summary Rpt | CCD ---
Author Author , RENATA YANEZ Address Unknown Phone [email or web address] Immunization Name Date Rout CVX Reac Dose Comm Prov Is Faci e tion ent ider Refu lity Give sed n Infl 09-1 Intr 0.5 Hist PD20 No PD20 uenz 2-20 amus mL oric 256 256 a 17 cula al Quad r Info rmat W/Pr ion es - Sour ce Unsp ecif ied Tdap 04-1 Intr 115 0.5 Hist PD20 No PD20 , 1-20 amus mL oric 256 256 Adso 17 cula al rbed r Info rmat ion - Sour ce Unsp ecif ied
--- OUTSIDE RECORDS SUMMARY | 2017-06-10 12:51 | External Medical Summary Rpt | CCD ---
Author Author , RENATA YANEZ Address Unknown Phone [email or web address] Immunization Name Date Rout CVX Reac Dose [...]
--- OUTSIDE RECORDS SUMMARY | 2017-06-10 12:51 | External Medical Summary Rpt ---
[...] 10:00 AM [Mass/vol source ume] in data [address] [address] Serum 0 [place], [place] [id number] Elderly Caregiver: Silvio Barrientos PhD, Phone: [phone] Comprehensive metabolic 2000 panel in Serum [...] 10:30 AM [Mass/vol source ume] in data [address] [place] [address] Serum 0 [place], [place] [id number] Elderly Caregiver: Silvio Barrientos PhD, Phone: [phone] 25-Hydroxyvitamin D [Mass/volume] in Serum or Plasma Observa Value Referen Units Interpr Notes Date tion ce etation Range 25-Hydrox 30.0 - ng/mL Low Vitamin D Feb 02 yvitamin 100.0 2017 D deficienc 10:30 AM [Mass/vol y has ume] in been Serum or defined Plasma by the [place] [facility] e and an Endocrine Society [...] 1 OR informa informa informa informa 2011 PROTESTANT tion in tion in tion in tion [...] source source data data data data CHART [id number] No No No No Sep 1 NUMBER 5004/C1 informa informa informa informa 2010 [id number] tion in tion in tion in tion [...]
[2017-06-10 13:41] LABS: HEMOGLOBIN 14.4 g/dL (12.2-16.2)
[2017-06-10 13:42] LABS: LYMPH # 2.2 K/mm3 (0.7-4.5); LYMPH % 22.9 % (10-50.0)
--- NOTE | 2017-06-10 13:43 | Emergency Room Report ---
History of Present Illness Time Seen by 1252 Presenting Problem in Triage Pt arrived:Walked Presenting Problem:PT REPORTS INCREAED SOA WITH PRODUCTIVE COUGH X1 WEEK. PT REPORTS SOA WORSENS WITH ACTIVITY. Onset of symptoms date/time:06/03/17/ or onset unknown for:MEDICAL HX UNKNOWN Treatment Prior to Arrival: NEON GLASS BENDER Provided by: Sepsis Risk Assessment: Temp: 98.1 B/P: 161/98 MAP: 119 Pulse: 103 Resp: 24 Recent fever? N Clinical Suspician of Infection? N Mental Status: 1 - Regular (Normal Baseline) Sepsis Risk:Possible Sepsis Risk Have you (or family members/close friends) recently traveled outside the [place]? N If Yes, where/when: Have you had exposure to infectious disease within the past month? N TB? Other? Specify: Source patient, RN notes reviewed Exam Limitations no limitations Comment Pt comes to the ED with increasing SOA and describes a pressure in her chest for the past week. She has a long history of COPD and is home O2 dependent and uses nebs and inhalers. She has not been running any fever but has also had a cough with some sputum production. She denies a history of heart disease Cardiac Chest Pain Chest pain indicative of cardiac Yes Timing/Duration 1 week Severity/Quality moderate ALLERGIES Coded Allergies: duloxetine (From CYMBALTA) (06/10/17) pregabalin (From LYRICA) (10/02/15) Home Medications Reported Medications Losartan Potassium (Losartan 100MG) 100 MG PO DAILY ROPINIROLE HCL (Ropinirole 0.5MG) 1 MG PO TID ACETAMINOPHEN WITH CODEINE (Tylenol With Codeine #3 Tablet) 1 TAB PO Q6HP PRN PAIN Metoprolol Tartrate (Metoprolol) 25 MG PO DAILY AZELASTINE HCL (Azelastine HCl) 137 MCG NA BID ONDANSETRON HCL (Zofran 4MG Tab) 4 MG PO Q8HP PRN NAUSEA AND VOMITING Formoterol Fumarate (Perforomist) 20 MCG IH BID CITALOPRAM HYDROBROMIDE (Citalopram HBr) 40 MG PO DAILY Budesonide (Pulmicort) 0.5 MG IH BID Magic Mouthwash 10 ML PO TID ASPIRIN (Aspirin) 81 MG PO DAILY Meloxicam (Meloxicam 15MG) 15 MG PO DAILY HYDROCHLOROTHIAZIDE (Hydrochlorothiazide) 25 MG PO DAILY Temazepam (Temazepam 15MG) 7.5 MG PO QHS History Medical History General CAD? No Angina: Yes NE: No Hypertension? No Hyperlipidemia? Yes CHF? No DVT? No PE? No COPD? Yes Asthma? No Anemia? No GERD? No Gastric ulcers? No GI Bleed? No Hernia? No Thyroid Problems? No Hypothyroidism? No CVA? No Seizures? No Diabetes? No Insulin Dependent: No Insulin Pump: No Home FSBS? No Renal Insuffiency? No End Stage Renal Disease? No UTI? Yes Stones? No BPH? No GB Disease: Yes Nephritic Syndrome? No Asplenia? No Hepatitis? No Sickle Cell Disease? No Arthritis? No Migraines? No Cataracts? No Glaucoma? No MRSA? No HIV? No TB? No Anxiety? No Depression? No Cancer? No More? Yes Additional hx: COSTCHRONICITIS Immunization Hx DT/Tetanus Unknown Flu 2015-FSN Pneumonia Received In Past Surgical Hx Previous Surgery?Y HYSTERECTOMY HAMMER TOES GALL BLADDER LUNG BIOPSY Family History Family Hx Diabetes No CAD Yes Hypertension No Hyperlipidemia No Cancer Yes TB No Social History Smoking Hx Smoker: Former Smoker Tobacco: No Packs/day N/A Alcohol Alcohol: No Review of Systems All Other Systems Reviewed and Negative Constitutional see HPI Respiratory see HPI Cardiovascular see HPI Physical Exam Vital Signs Vital Signs Date Time Temp Pulse Resp B/P Pulse O2 O2 Flow FiO2 Ox Delivery Rate 06/10 1536 86 22 112/69 98 2 06/10 1422 95 06/10 1420 88 22 147/39 100 2 06/10 1320 2 06/10 1320 2 06/10 1320 2 06/10 1300 98.1 103 24 161/98 99 3 General Appearance mild distress Ear, Nose, Throat hearing grossly normal, normal ENT inspection Respiratory Status No: respiratory distress. Lung Sounds bilateral: decreased breath sounds. Cardiovascular regular rate/rhythm, tachycardia Peripheral Pulses Pulses normal Yes Neurologic alert, environmental advisor II-XII nml as tested, normal exam Medical Decision Making LABS/Meds/Orders Pt receiving controlled substance in ED? No Results/Orders Laboratory Tests 06/10/17 1430: ABG pH 7.37, ABG pCO2 (Temp Corrct 52.9 H, ABG pO2 (Temp Correct 17.8 *L, ABG HCO3 30.1 H, ABG Total CO2 31.7 H, ABG O2 Sat (Calculated) 25.5 *L, ABG Base Excess 4.9 H, Myron Test NON APPLICABLE, Blood Gas Comments LEFT BRACHIAL 06/10/17 1310: Lactic Acid 1.8 06/10/17 1310: Sodium 139, Potassium 4.1, Chloride 100, Carbon Dioxide 30, BUN 15, Creatinine 0.9, Estimated Creat Clear 55, Estimated GFR (MDRD) 61, Glucose 105, Calcium 9.8 , Total Bilirubin 0.6, AST 22, ALT 23, Alkaline Phosphatase 75, Creatine Kinase 39, CK-MB (CK-2) Rel Index 2.3, CK and CKMB Interp 0.9, Troponin I 0.05, Total Protein 8.0, Albumin 4.0, Globulin 4.0 H, Albumin/Globulin Ratio 1.0 L, WBC 9.8, RBC 4.86, Hgb 14.4, Hct 43.7, MCV 89.9, RDW 12.9, Plt Count 280, MPV 7.8, Gran % 66.8, Gran # 6.3, Lymphocytes % 22.9, Monocytes % 4.1, Eosinophils % 5.3, Basophils % 0.9, Lymphocytes # 2.2, Monocytes # 0.4, Eosinophils # 0.5 H, Basophils # 0.1, PUBS MCHC 32.9, MCH 29.6 Current Medication Orders Sig/Jumana Start time Last Medication Dose Route Stop Time Status Admin Methylprednisolone 0 .STK-MED ONE 06/10 1402 DC Sodium Succinate .ROUTE Methylprednisolone 125 MG ONCE ONE 06/10 1345 DC 06/10 Sodium Succinate IV 06/10 1346 1403 Albuterol/Ipratropium 3 ML ONCE ONE 06/10 1315 DC 06/10 INH 06/10 1316 1320 Sodium Chloride 10 ML PRN PRN 06/10 1315 AC IV 06/11 1309 Albuterol/Ipratropium 0 .STK-MED ONE 06/10 1309 DC INH Orders Procedure Date/time Status OXYGEN PER NURSE 06/10 1421 Active ARTERIAL BLOOD GAS REQUEST 06/10 1344 Active RT Pulse Oximetry, Provide 06/10 1331 Active RT O2 Installation/Change Set 06/10 1331 Active RT O2 Therapy, Monitor/Maintai 06/10 1331 Active RT Aerosol Treatment, Provide 06/10 1331 Active RT Aerosol Treatment, Provide 06/10 1331 Active 12 LEAD EKG-MAXIM (INITIAL) 06/10 1310 Active ELECTROCARDIOGRAM REQUEST 06/10 1309 Active RT REQUEST DUONEB 06/10 1309 Active IV SALINE LOCK 06/10 1309 Active CULTURE, BLOOD 06/10 1309 Active LACTIC ACID 06/10 1309 Complete CBC WITH AUTO DIFF 06/10 1309 Complete CARDIAC ENZYMES 06/10 130 Complete CHEM 12 PROFILE 06/10 130 Complete Departure Departure Time of Disposition 1554 Disposition DC Home or Self Care(routine) Clinical Impression Primary Impression: Acute exacerbation of chronic obstructive pulmonary disease (COPD) Condition STABLE Referrals Sincere Israel MD (Family): 3 Days-Call Office Patient Instructions Chronic Obstructive Pulmonary Disease, DI for Chronic Obstructive Pulmonary Disease Additional Instructions Use medicines as directed and followup with Dr. Israel in 3 to 4 days or return to the ED if symptoms worsen Discharge Counseling Counseled pt/family regarding diagnosis, test results, medications/RX, home care, follow up needs Prescriptions Current Visit Scripts Prednisone (Prednisone 5MG) 5 MG PO DIRECTED #39 TAB 6 tabs QD X 3D 4 tabs QD X 3D 2 tabs QD X 3D 1 tab QD X 3D Amoxicillin (Amoxicillin 500MG) 500 MG PO TID #30 CAP ED Critical Care Critical Care No If Critical Care minutes are documented, the time involved in the performance of seperately reportable procedures was not counted toward critical care time documented. I directly delivered medical care to this critically ill and/or injured patient. Timely evaluation and treatment was necessary to address the significant organ system(s) dysfunction present in this patient. at 1557
[2017-06-10 14:42] LABS: ALLEN'S TEST NON APPLICABLE; ARTERIAL ABE 4.9 MMOL/L (-2.4-+2.3); ARTERIAL PO2 17.8 MMHG (80-100); ARTERIAL TCO2 31.7 MMOL/L (23-27); OXYGEN 28%
--- NOTE | 2017-06-10 14:42 | RADIOLOGY REPORT PS360 ---
CHEST-PORTABLE HISTORY: Shortness of air SOA ORDERING PHYSICIAN: Valerie Muro MD PATIENT AGE: 76 years COMPARISON: 10/13/16 FINDINGS: The cardiomediastinal silhouette and pulmonary vascularity are within normal limits. Emphysema. Right apical sutures. No lobar consolidation or collapse.. No acute bony abnormalities. IMPRESSION: COPD/emphysema, no change with no acute finding
[2017-06-10] MEDS ORDERED: AMOXICOT500 MG PO (15:57)
[2017-06-10] MEDS ORDERED: PREDNISONE 5MG.5 MG PO (15:57)
[2017-06-10 16:01] VITALS: BP 112/69
== END 2017-06-10 16:17 | disposition home or self-care (01) ==
LOC: UTC 12:44 → ER 12:46
PROVIDERS: General Practice
DX: J44.1 Chronic obstructive pulmonary disease with (acute) exacerbation (principal); E78.5 Hyperlipidemia, unspecified; Z88.8 Allergy status to other drugs, medicaments and biological substances

== ENCOUNTER 2017-06-29 11:34 | Emergency (ER) | payer MEDICARE, BC ==
[~2017-06-29] VITALS: Ht 165.1 cm; Wt 62.6 kg
[~2017-06-29 11:34] MED LIST changes: +AMOXICOT500 MG PO; +PREDNISONE 5MG.5 MG PO
[2017-06-29] MEDS ORDERED: ZOFRAN ODT4 MG PO (11:49)
--- NOTE | 2017-06-29 11:50 | Emergency Room Report ---
History of Present Illness Time Seen by [id number] Presenting Problem in Triage Pt arrived:Walked Presenting Problem:PT STATES THAT SHE HAS BEEN HAVING NAUSEA/DIARRHEA/VOMITTING, AND DIZZINESS PT WAS SENT FROM [facility]. 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 N Clinical Suspician of Infection? N Mental Status: 1 - Regular (Normal Baseline) Sepsis Risk:Low Sepsis Risk Have you (or family members/close friends) recently traveled outside the [place]? N If Yes, where/when: Have you had exposure to infectious disease within the past month? N TB? Other? Specify: Source patient, RN notes reviewed, family, RN/MD Exam Limitations no limitations Comment This is a 76 year old lady sent by Dr Israel to the ER for evaluation of her nausea, vomiting, diarrhea that started approximately 4-5 days ago. She was seen in Dr. Israel's office on Monday, but she called today advising the physician that her symptoms are persistent, reason why PCP sent her to the ER. Patient denies any recent travel or exposure to sick contacts, denies any hematemesis or hematochezia. She has some subjective fever over the past 24 hours with chills. ALLERGIES Coded Allergies: duloxetine (From CYMBALTA) (06/10/17) pregabalin (From LYRICA) (10/02/15) Home Medications Active Scripts Prednisone (Prednisone 5MG) 5 MG PO DIRECTED #39 TAB Prov: 06/10/17 Amoxicillin (Amoxicillin 500MG) 500 MG PO TID #30 CAP Prov: 06/10/17 Reported Medications Losartan Potassium (Losartan 100MG) 100 MG PO DAILY ROPINIROLE HCL (Ropinirole 0.5MG) 1 MG PO TID ACETAMINOPHEN WITH CODEINE (Tylenol With Codeine #3 Tablet) 1 TAB PO Q6HP PRN PAIN Metoprolol Tartrate (Metoprolol) 25 MG PO DAILY AZELASTINE HCL (Azelastine HCl) 137 MCG NA BID ONDANSETRON HCL (Zofran 4MG Tab) 4 MG PO Q8HP PRN NAUSEA AND VOMITING Formoterol Fumarate (Perforomist) 20 MCG IH BID CITALOPRAM HYDROBROMIDE (Citalopram HBr) 40 MG PO DAILY Budesonide (Pulmicort) 0.5 MG IH BID Magic Mouthwash 10 ML PO TID ASPIRIN (Aspirin) 81 MG PO DAILY Meloxicam (Meloxicam 15MG) 15 MG PO DAILY HYDROCHLOROTHIAZIDE (Hydrochlorothiazide) 25 MG PO DAILY Temazepam (Temazepam 15MG) 7.5 MG PO QHS History Medical History General CAD? No Angina: Yes VT: No Hypertension? No Hyperlipidemia? Yes CHF? No DVT? No PE? No COPD? Yes Asthma? No Anemia? No GERD? No Gastric ulcers? No GI Bleed? No Hernia? No Thyroid Problems? No Hypothyroidism? No CVA? No Seizures? No Diabetes? No Insulin Dependent: No Insulin Pump: No Home FSBS? No Renal Insuffiency? No End Stage Renal Disease? No UTI? Yes Stones? No BPH? No GB Disease: Yes Nephritic Syndrome? No Asplenia? No Hepatitis? No Sickle Cell Disease? No Arthritis? No Migraines? No Cataracts? No Glaucoma? No MRSA? No HIV? No TB? No Anxiety? No Depression? No Cancer? No More? Yes Additional hx: COSTCHRONICITIS Immunization Hx DT/Tetanus Unknown Flu 2015-17FSN Pneumonia Received In Past Surgical Hx Previous Surgery?Y HYSTERECTOMY HAMMER TOES GALL BLADDER LUNG BIOPSY Family History Family Hx Diabetes No CAD Yes Hypertension No Hyperlipidemia No Cancer Yes TB No Social History Smoking Hx Smoker: Never Smoker Tobacco: No Packs/day N/A Alcohol Alcohol: No Review of Systems All Other Systems Reviewed and Negative Gastrointestinal see HPI, abdominal pain (LLQ), diarrhea, nausea, vomiting Physical Exam Vital Signs Vital Signs Date Time Temp Pulse Resp B/P Pulse O2 O2 Flow FiO2 Ox Delivery Rate 06/29 1303 97.7 58 18 122/60 100 2 06/29 1139 97.9 69 20 118/76 95 3 General Appearance normal appearance, WD/WN, mild distress Respiratory Status Yes: trachea midline, chest symmetrical, non tender chest. No: respiratory distress. Lung Sounds bilateral: normal breath sounds, lungs clear. Cardiovascular normal exam, regular rate/rhythm, no peripheral edema, no gallop, no JVD, no murmur, no rub, normal peripheral pulses Gastrointestinal soft, no organomegaly, no guarding, no rebound, tenderness (LLQ ) Extremities non-tender, normal range of motion, normal inspection Neurologic alert, optimization specialist II-XII nml as tested, normal exam, oriented x 3 Mental status normal mood/affect Skin intact, normal color, warm/dry Medical Decision Making LABS/Meds/Orders Pt receiving controlled substance in ED? No Comment 1:45pm-patient reevaluated, feels better, remains afebrile, in no acute distress. Will administer a second bag of IV fluids and discharge patient home. Patient to follow up with PCP in 2-3 days if not better. Results/Orders Laboratory Tests 06/29/17 1247: Urine Color YELLOW, Urine Appearance SL CLOUDY, Urine pH 6.0, Ur Specific [place] >= 1.030, Urine Protein NEGATIVE, Urine Ketones NEGATIVE, Urine Blood NEGATIVE, Urine Nitrate NEGATIVE, Urine Bilirubin NEGATIVE, Urine Urobilinogen 0.2, Ur Leukocyte Esterase NEGATIVE, Urine RBC NONE, Urine WBC 5-10, Ur Squamous Epith Cells 3-5, Urine Bacteria 2+, Urine Glucose NEGATIVE 06/29/17 1150: Amylase 64, Lipase 172 06/29/17 1150: Sodium 139, Potassium 3.4 L, Chloride 102, Carbon Dioxide 29, BUN 19 H, Creatinine 1.3 H, Estimated Creat Clear 37 L, Estimated GFR (MDRD) 40 L, Glucose 100, Calcium 9.4, Total Bilirubin 0.5, AST 16, ALT 20, Alkaline Phosphatase 77, Total Protein 7.4, Albumin 3.5, Globulin 3.9 H, Albumin/ Globulin Ratio 0.9 L, WBC 7.6, RBC 4.65, Hgb 13.8, Hct 42.0, MCV 90.3, RDW 13.1 , Plt Count 302, MPV 7.6, Gran % 64.7, Gran # 4.9, Lymphocytes % 23.1, Monocytes % 7.2, Eosinophils % 3.9, Basophils % 1.0, Lymphocytes # 1.8, Monocytes # 0.6, Eosinophils # 0.3, Basophils # 0.1, PUBS MCHC 32.8, MCH 29.7 Current Medication Orders Sig/Jumana Start time Last Medication Dose Route Stop Time Status Admin Diphenoxylate HCl/ 5 MG ONCE ONE 06/29 1400 AC Atropine PO 06/29 1401 Loperamide HCl 4 MG ONCE ONE 06/29 1400 AC PO 06/29 1401 Sodium Chloride 1,000 ML .STK-MED ONE 06/29 1345 DC IV Sodium Chloride 1,000 ML .Q1H1M 06/29 1300 AC IV 06/29 1400 Sodium Chloride 10 ML PRN PRN 06/29 1300 AC IV 06/30 1300 Ondansetron HCl 4 MG ONCE ONE 06/29 1200 DC 06/29 IV 06/29 1201 1151 Sodium Chloride 1,000 ML .Q1H1M 06/29 1200 DC 06/29 IV 06/29 1300 1151 Sodium Chloride 10 ML PRN PRN 06/29 1200 AC IV 06/30 1147 Sodium Chloride 10 ML PRN PRN 06/29 1145 AC IV 06/30 1136 Orders Procedure Date/time Status DIET-NOTHING BY MOUTH 06/29 D Active URINALYSIS/COMPLETE 06/29 1250 Complete LIPASE 06/29 1249 Complete DIARRHEA PANEL, PCR 06/29 1249 Active AMYLASE 06/29 1249 Complete CULTURE, URINE 06/[address] ABD/PELVIS REQ 06/29 1153 Complete IV SALINE LOCK 06/29 1136 Active CBC WITH AUTO DIFF 06/29 1136 Complete CHEM 12 PROFILE 06/29 1136 Complete XRAY/CT/US XRAY/CT/US CT abdomen, pelvis CT interpretation by discussed w/radiologist Time results known: 1345 CT Results see radiologist's report, no epididymitis, no appendicitis Departure Departure Disposition DC Home or Self Care(routine) Clinical Impression Primary Impression: Viral gastroenteritis Condition STABLE Referrals Sincere Israel MD (Family) as needed Patient Instructions DI for Viral Gastroenteritis -- Adult Additional Instructions Please drink plenty of fluids, take [id number] Imodium as needed for diarrhea, is a prescription attached for nausea/vomiting, follow-up with PCP if no better. Discharge Counseling Counseled pt/family regarding diagnosis, test results, medications/RX, home care, follow up needs Comment Please drink plenty of fluids, take [id number] Imodium as needed for diarrhea, is a prescription attached for nausea/vomiting, follow-up with PCP if no better. Prescriptions Current Visit Scripts Ondansetron (Zofran 4MG Odt) 4 MG PO Q6HP PRN NAUSEA AND VOMITING #20 ODT ED Critical Care Critical Care No at [id number]
[2017-06-29 11:59] LABS: HEMOGLOBIN 13.8 g/dL (12.2-16.2); LYMPH # 1.8 K/mm3 (0.7-4.5); LYMPH % 23.1 % (10-50.0)
--- OUTSIDE RECORDS SUMMARY | 2017-06-29 12:05 | External Medical Summary Rpt | CCD ---
Author Author , RENATA YANEZ Address Unknown Phone [email or web address] Care Team Providers Care Bench Repair Technician Name Role Phone Sincere Israel MD, Unavailable Unavailable Sincere Israel MD Purpose Continuity of Care Document - 04-14-2011 through 2016 Problems Code Diagnosis DOS Provider Status 486 [facility] 496 Chronic [facility] lung [facility] disease 786.09 Dyspnea Psychiatric I65.23 Occlusion and stenosis of bilateral carotid arteries I73.9 PERIPHERAL VASCULAR DISEASE, UNSPECIFIED 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 5) MG /3 ML SC 51 06 2 No AV 07 -2 [...] Order Detail nces retati t Range on Arterial blood gas (06-10-2017 14:30) Arteria = 31.7 23-27 complet l blood 017 MMOL/L ed carbon 14:30 dioxide , total sonido SOURCE LEFT complet 017 BRACHIA ed 14:30 L Arteria = 25.5 90-100 complet l blood 017 % ed oxygen 14:30 saturat ion calcula Arteria = 17.8 80-100 complet l whole 017 MMHG ed blood 14:30 PO2 at POC Comment: Comment: CRITICAL RESULTS Comment: RESULTS CALLED TO: IRAIS TROY RN 06/10/17 1442 Tianna Song Comment: Salenia Arteria = 7.37 7.35-7. complet l blood 017 MMOL/L 45 ed pH 14:30 measure ment Arteria = 52.9 35.0-45 complet l blood 017 MMHG .0 ed 14:30 partial pressur e of carbo Comment: CRITICAL RESULTS Comment: RESULTS CALLED TO: IRIAS TROY RN 06/10/17 1441 Tianna Song Comment: Salenia Arteria = 28% complet l blood 017 ed total 14:30 oxygen content chance Arteria = 30.1 22.0-26 complet l blood 017 MMOL/L .0 ed 14:30 bicarbo major measure ment ( Myron's NON complet test 017 APPLICA ed before 14:30 BLE NON arteria l blood APPLICA gas BLE L Arteria = 4.9 -2.4-+2 complet l blood 017 MMOL/L .3 ed base 14:30 excess determi nation Gas panel in Arterial blood (06-10-2017 14:30) Arteria NON complet l 017 APPLICA ed patency 14:30 BLE Wrist artery --pre arteria l punctur e SOURCE LEFT complet 017 BRACHIA ed 14:30 L CBC w auto diff (06-10-2017 13:10) Blood = 9.8 4.8-10. complet leukocy 017 K/MM3 8 ed marylin 13:10 count (number /volume ) Automat = 12.9 11.5-17 complet ed 017 % .5 ed erythro 13:10 cyte distrib ution width Red = 4.86 4.2-5.4 complet blood 017 M/mm3 ed cell 13:10 count Blood = 280 142-424 complet platele 017 K/mm3 ed t count 13:10 Automat = 7.8 7.4-10. complet ed 017 fl 4 ed blood 13:10 platele t mean volume sonido [place] % = 4.1 % 1.7-9.3 complet 017 ed 13:10 Absolut = 0.4 0.1-1.0 complet e 017 K/mm3 ed monocyt 13:10 e count Automat = 89.9 82.2-97 complet ed 017 fl .8 ed erythro 13:10 cyte mean corpusc ular v Automat = 32.9 31.8-35 complet ed 017 g/dl .4 ed erythro 13:10 cyte mean corpusc ular h Mean = 29.6 27-31.2 complet corpusc 017 pg ed ular 13:10 hemoglo bin (MCH) determ Lymphoc = 22.9 10-50.0 complet yte 017 % ed count, 13:10 blood, automat ed Absolut = 2.2 0.7-4.5 complet e 017 K/mm3 ed lymphoc 13:10 yte count Blood = 14.4 12.2-16 complet hemoglo 017 g/dL .2 ed bin 13:10 measure ment (mass/v olum Blood = 43.7 37.0-47 complet hematoc 017 % .0 ed rit 13:10 (volume fractio n) Granulo = 66.8 37.0-80 complet cyte 017 % .0 ed percent 13:10 age Blood = 6.3 1.8-7.8 complet granulo 017 K/mm3 ed cytes 13:10 automat ed count (numb Automat = 5.3 % 0.1-12. complet ed 017 0 ed blood 13:10 eosinop hils/10 0 leukocy t Automat = 0.5 0.0-0.4 complet ed 017 K/mm3 ed blood 13:10 eosinop hil count Baso % = 0.9 % 0.1-2.0 complet 017 ed 13:10 Automat = 0.1 0-0.2 complet ed 017 K/MM3 ed blood 13:10 basophi l count (count/ vo Blood lactic acid measurement (moles/vol (06-10-2017 13:10) Blood = 1.8 0.4-2.0 complet lactic 017 mmol/L ed acid 13:10 measure ment (moles/ vol Comprehensive metabolic panel (06-10-2017 13:10) Protein = 8.0 6.4-8.2 complet total 017 gm/dL ed ser/sheila 13:10 s ALT = 23 12-78 complet (SGPT) 017 U/L ed ser/sheila 13:10 s Serum = 22 15-37 complet or 017 U/L ed plasma 13:10 asparta te aminotr ansfera Serum = 139 136-145 complet sodium 017 mmoL/L ed measure 13:10 ment Serum = 4.1 3.5-5.1 complet potassi 017 mmoL/L ed um 13:10 measure ment Serum = 105 74-106 complet or 017 mg/dL ed plasma 13:10 glucose measure ment (mas Serum = 4.0 1.3-3.2 complet globuli 017 gm/dL ed n 13:10 measure ment (mass/v olume) Estimat = 61 59- complet ed 017 ML/MIN ed glomeru 13:10 lar filtrat ion rate (GF Comment: REFERENCE RANGE: >60 ML/MIN/1.73 SQUARE METERS Comment: If this patient is -Greek, then multiply the Comment: result by 1.210. Estimat = 55 50-200 complet ion of 017 ML/MIN ed creatin 13:10 ine renal clearan ce Serum = 0.9 0.55-1. complet or 017 mg/dL 02 ed plasma 13:10 creatin ine measure ment ( Carbon = 30 21.0-32 complet dioxide 017 mmoL/L .0 ed 13:10 measure ment Serum = 100 98-107 complet or 017 mmoL/L ed plasma 13:10 chlorid e measure ment (mo Serum = 9.8 8.5-10. complet or 017 mg/dL 1 ed plasma 13:10 calcium measure ment (mas Serum = 15 7-18 complet or 017 mg/dL ed plasma 13:10 urea nitroge n measure men Serum = 0.6 0.2-1.0 complet or 017 mg/dL ed plasma 13:10 total bilirub in measure m Serum = 75 46-116 complet or 017 U/L ed plasma 13:10 alkalin e phospha tase sonido Serum = 4.0 3.4-5.0 complet or 017 gm/dL ed plasma 13:10 albumin measure ment (mas Serum = 1.0 1.1-1.8 complet or 017 ed plasma 13:10 albumin /globul in mass ra Cardiac enzymes (06-10-2017 13:10) Serum = 0.05 0.00-0. complet or 017 ng/mL 06 ed plasma 13:10 troponi n i.cardi ac measu Serum = 39 26-192 complet or 017 U/L ed plasma 13:10 creatin e kinase measure m Serum = 0.9 0.0-3.6 complet or 017 ng/mL ed plasma 13:10 creatin e kinase MB measu Serum = 2.3 0-4.0 complet or 017 U/L ed plasma 13:10 creatin e kinase MB (CK-M Vitamin B12 ser/plas (05-23-2017 10:00) Vitamin = 273 211-946 complet B12 017 pg/mL ed ser/sheila 10:00 s Comment: Performed at: [facility] Comment: [id number], [place] [id number] Comment: Rolling Machine Tender: Silvio Barrientos PhD, Phone: [phone] Creat Bld-mCnc (11-09-2016 15:52) Creat 0.90 0.60-1. complet BldA-mC 017 mg/dL 30 ed nc 15:52 Comment: Serial Number: [id number] Operations Label Clerk: [id number] ARTERIAL BLOOD GAS (02-20-2013 17:16) ARTERIA 7.38 7.35-7. complet L PH 013 MMOL/L 45 ed 17:16 ARTERIA 38.8 35.0-45 complet L PCO2 013 MMHG .0 ed 17:16 ARTERIA 96.6 80-100 complet L PO2 013 MMHG ed 17:16 ARTERIA 22.4 22.0-26 complet L HCO3 013 MMOL/L .0 ed 17:16 ARTERIA 23.6 23-27 complet L TCO2 013 MMOL/L ed 17:16 Base -2.7 -2.4-+2 complet excess 013 MMOL/L .3 ed BldA-sC 17:16 nc ARTERIA 97.5 % 90-100 complet L O2 013 ed SAT 17:16 OXYGEN 28%, complet 013 2LPM ed 17:16 N/C Arteria 02-20-2 ACCEPTA complet l 013 BLE ed patency [...] (ESTIMA 013 ML/MIN ed ANAHI) 06:40 Sodium 138 136-145 complet SerPl-s 013 mmoL/L ed Cnc 06:40 Potassi 3.9 3.5-5.1 complet um 013 mmoL/L ed SerPl-s 06:40 Cnc Chlorid 105 98-107 complet e 013 mmoL/L ed SerPl-s 06:40 Cnc CO2 02-20- 25 21.0-32 complet SerPl-s 013 mmoL/L .0 ed Cnc 06:40 Calcium 9.1 8.5-10. complet 013 mg/dL 1 ed SerPl-m 06:40 Cnc CBC with AUTO DIFF (02-20-2013 06:40) WBC # 10-2 11.3 4.8-10. complet Bld 013 K/MM3 8 ed Auto 06:40 RBC # 10-2 4.58 4.2-5.4 complet Bld 013 M/mm3 ed Auto 06:40 Hgb 02-20- 12.6 12.2-16 complet Bld-mCn 013 g/dL .2 ed c 06:40 Hct Fr 39.8 % 37.0-47 complet Bld 013 .0 ed 06:40 MCV RBC 86.9 fl 82.2-97 complet 013 .8 ed [...] Auto COMPREHENSIVE METABOLIC PANEL (02-19-2013 10:35) Glucose 02-19-2 92 74-106 complet 013 mg/dL ed Bld-mCn 10:35 c BUN 02-19-2 15 7-18 complet Bld-mCn 013 mg/dL ed [...] Bld 013 M/mm3 ed Auto 10:35 Hgb 07-09-2 14.2 12.2-16 complet Bld-mCn 013 g/dL .2 ed c 10:35 Hct Fr 07-09-2 44.4 % 37.0-47 complet Bld 013 .0 ed 10:35 MCV RBC 07-09-2 87.7 fl 82.2-97 complet 013 .8 ed 10:35 MCH RBC 07-09-2 28.1 pg 27-31.2 complet Qn 013 ed Auto 10:35 MEAN -09-2 32.0 31.8-35 complet CORPUSC 013 g/dl .4 ed ULAR 10:35 HGB CONC RDW RBC -09-2 15.0 % 11.5-17 complet Auto 013 .5 ed 10:35 Platele 07-09-2 323 142-424 complet t Bld 013 K/mm3 ed Ql 10:35 Manual MEAN -09-2 7.6 fl 7.4-10. complet PLATELE 013 4 ed T 10:35 VOLUME Granulo 07-09-2 66.8 % 37.0-80 complet cytes 013 .0 ed Fr Bld 10:35 Auto LYMPH % 07-09-2 24.5 % 10-50.0 complet 013 ed 10:35 Monocyt 07-09-2 5.6 % 1.7-9.3 complet es Fr 013 ed Bld 10:35 Auto Eosinop 07-09-2 2.4 % 0.1-12. complet hil Fr 013 0 ed Bld 10:35 Auto Basophi 07-09-2 0.7 % 0.1-2.0 complet ls Fr 013 ed Bld 10:35 Auto Granulo 07-09-2 5.8 1.8-7.8 complet cytes # 013 K/mm3 ed Bld 10:35 Auto Lymphoc 07-09-2 2.1 0.7-4.5 complet ytes Fr 013 K/mm3 [...] Bld 013 M/mm3 ed Auto 06:10 Hgb 29-2 13.4 12.2-16 complet Bld-mCn 013 g/dL .2 [...] 013 0 ed Bld 06:10 Auto Basophi 29-2 0.1 % 0.1-2.0 complet ls Fr 013 ed Bld 06:10 Auto Granulo 02-09-2 3.5 1.8-7.8 complet cytes # 013 K/mm3 [...] K/MM3 8 ed Auto 17:55 RBC # 06-28-2 4.94 4.2-5.4 complet Bld 013 M/mm3 ed Auto 17:55 Hgb -28-2 13.9 12.2-16 complet Bld-mCn 013 g/dL .2 ed c 17:55 Hct Fr 02-08-2 42.8 % 37.0-47 complet Bld 013 .0 ed 17:55 MCV RBC 02-08-2 86.7 fl 82.2-97 complet 013 .8 ed 17:55 MCH RBC 28-2 28.2 pg 27-31.2 complet Qn 013 ed Auto 17:55 MEAN 06-28-2 32.5 31.8-35 complet CORPUSC 013 g/dl .4 ed ULAR 17:55 HGB CONC RDW RBC 28-2 14.6 % 11.5-17 complet Auto 013 .5 ed 17:55 Platele -28-2 293 142-424 complet t Bld 013 K/mm3 ed Ql 17:55 Manual MEAN 02-08-2 7.9 fl 7.4-10. complet PLATELE 013 4 ed T 17:55 VOLUME Granulo -28-2 69.5 % 37.0-80 complet cytes 013 .0 ed Fr Bld 17:55 Auto LYMPH % 06-28-2 22.8 % 10-50.0 complet 013 ed 17:55 Monocyt 06-28-2 4.8 % 1.7-9.3 complet es Fr 013 ed Bld 17:55 Auto Eosinop 06-28-2 2.0 % 0.1-12. complet hil Fr 013 0 ed Bld 17:55 Auto Basophi -28-2 0.9 % 0.1-2.0 complet ls Fr 013 ed Bld 17:55 Auto Granulo 06-28-2 4.9 1.8-7.8 complet cytes # 013 K/mm3 ed Bld 17:55 Auto Lymphoc 06-28-2 1.6 0.7-4.5 complet ytes Fr 013 K/mm3 ed Bld 17:55 Auto Monocyt 06-28-2 0.3 0.1-1.0 complet es # 013 K/mm3 ed Bld 17:55 Auto Eosinop 06-28-2 0.1 0.0-0.4 complet hil # 013 K/mm3 ed Bld 17:55 Auto Basophi 0.1 0-0.2 complet ls # 013 K/MM3 ed Bld 17:55 Auto Mycobacterium sp identified in Unspecified specimen by Organism specific culture (04-14-2011 13:15) SPECIME ISOLATE complet N TYPE 011 ed 13:15 COLLECT CENTRAL complet OR 011 ed 13:[address] [facility] [address] [facility] complet AN 011 ed 13:15 TB MEDS UNKNOWN complet 011 ed 13:15 TB MEDS NA complet START 011 ed DATE 13:15 SPECIME LUNG complet N 011 TISSUE ed SOURCE 13:15 DATE complet COLLECT 011 011 ed ED 13:15 CHART [id number] complet NUMBER 011 5004/C1 ed 13:15 [id number] Mycobac MYCOBAC complet terium 011 TERIUM ed sp 13:15 AVIUM [Presen COMPLEX ce] in BY DNA Unspeci PROBE fied specime n by Organis m specifi c culture Encounters Encounter Start End Date Code Location Performer Type Date Inpatient IMP ([place]) 3 09:57 3 10:25 Inpatient IMP Keyshawn Israel MD ([place]) 3 17:00 3 10:13 [facility]
--- OUTSIDE RECORDS SUMMARY | 2017-06-29 12:05 | External Medical Summary Rpt | CCD ---
Author Author , RENATA YANEZ Address Unknown Phone [email or web address] Providers Care Spouter Name Role Phone Sincere Israel MD, Unavailable Unavailable Sincere Israel MD Purpose Continuity of Care Document - 04-14-2011 through 2016 Problems Code Diagnosis DOS Provider Status 486 [facility] [address] [facility] lung [facility] disease 786.09 Dyspnea [facility] I65.23 Occlusion and stenosis of bilateral carotid [...] D ve DR 40 MG TA B RI 11 06 1 No RA 52 -2 [...] 3( ve 2. 5) MG /3 ML [place] 51 06 2 No AV 07 -2 [...] RESULTS CALLED TO: IRAIS TROY RN 06/10/17 1441 Tianna Song Comment: [...] blood 13:10 platele t mean volume sonido [place] % = 4.1 % 1.7-9.3 complet 017 [...] SQUARE METERS Comment: If this patient is -Emirati, then multiply the Comment: result by 1.210. [...] ed ser/sheila 10:00 s Comment: Performed at: [facility] Comment: [id number], [place] [id number] Comment: Patient Financial Specialist: Silvio Barrientos PhD, Phone: [phone] Creat Bld-mCnc (11-09-2016 15:52) Creat 0.90 0.60-1. complet BldA-mC 017 mg/dL 30 ed nc 15:52 Comment: Serial Number: [id number] Online Publisher: [id number] ARTERIAL BLOOD GAS (02-20-2013 17:16) ARTERIA 7.38 [...] COLLECT CENTRAL complet OR 011 ed 13:[address] [facility] FITZ[facility]D complet AN 011 ed 13:15 TB MEDS UNKNOWN complet 011 ed 13:15 TB MEDS NA complet START 011 ed DATE 13:15 SPECIME LUNG complet N 011 TISSUE ed SOURCE 13:15 DATE complet COLLECT 011 011 ed ED 13:15 CHART [id number] complet NUMBER 011 5004/C1 ed 13:15 [id number] Mycobac MYCOBAC complet terium 011 TERIUM ed sp 13:15 AVIUM [Presen COMPLEX ce] in BY DNA Unspeci PROBE fied specime n by Organis m specifi c culture Encounters Encounter Start End Date Code Location Performer Type Date Inpatient IMP ([place]) 3 09:57 3 10:25 Inpatient IMP Keyshawn Israel MD ([place]) 3 17:00 3 10:13 [facility]
--- OUTSIDE RECORDS SUMMARY | 2017-06-29 12:06 | External Medical Summary Rpt | CCD ---
Author Author , RENATA YANEZ Address Unknown Phone [email or web address] Immunization Name Date Rout CVX Reac Dose [...]
--- OUTSIDE RECORDS SUMMARY | 2017-06-29 12:06 | External Medical Summary Rpt | CCD ---
Author Author , RENATA YANEZ Address Unknown Phone [email or web address] Immunization Name Date Rout CVX Reac Dose [...]
--- OUTSIDE RECORDS SUMMARY | 2017-06-29 12:07 | External Medical Summary Rpt ---
Author Author [employer], JARREDMARTA [employer] Organization [employer] Address Unknown Phone Unavailable Results Gas panel in Arterial blood Observa Value Referen Units Interpr Notes Date tion ce etation Range Base -2.4-+2.3 MMOL/L High No May 28 excess in informati 2017 2:30 Arterial on in PM blood source data Arteria NON No No No No Jun 10 l APPLICA informa informa informa informa 2017 patency BLE tion in tion in tion in tion in 2:30 PM Wrist source source source source artery data data data data --pre arteria l punctur e Bicarbona 22.0 - MMOL/L High No Jun 10 te 26.0 informati 2017 2:30 [Moles/vo on in PM lume] in source Arterial data blood Oxygen No No No No Jun 10 content informati informati informati informati 2017 2:30 in on in on in on in on in PM Arterial source source source source blood data data data data Carbon 35.0 - MMHG High Jun 10 dioxide 45.0 2016 2:30 [Partial CRITICAL PM pressure] RESULTS in Arterial RESU blood LTS CALLED TO: IRAIS TROY RN 06/10/17 1441 Joellen Song nSalenia pH of 7.35 - MMOL/L Normal No Jun 10 Arterial 7.45 informati 2017 2:30 blood on in PM source data Oxygen 80 - 100 MMHG Low alert Jun 10 [Partial 2017 2:30 pressure] CRITICAL PM in RESULTS Arterial blood RESU LTS CALLED TO: IRAIS TROY RN 06/10/17 1442 Joellen Song Steffaniealenia Oxygen 90 - 100 % Low alert No Jun 10 saturatio informati 2017 2:30 n.calcula on in PM marco antonio from source oxygen data partial pressure in Arterial blood SOURCE LEFT No No No No Jun 10 BRACHIA informa informa informa informa 2016 L tion in tion in tion in tion in 2:30 PM source source source source data data data data Carbon 23 - 27 MMOL/L High No Jun 10 dioxide, informati 2016 2:30 total on in PM [Moles/vo source lume] in data Arterial blood Lactate [Moles/volume] in Blood Observa Value Referen Units Interpr Notes Date ti ce etation Range Lactate 0.4 - 2.0 mmol/L Normal No Jun 10 [Moles/vo informati 2016 1:10 lume] in on in PM Blood source data Cardiac enzymes Observa Value Referen Units Interpr Notes Date ti ce etation Range Creatine 0 - 4.0 U/L Normal No Jun 10 kinase.MB informati 2016 1:10 /Creatine on in PM source kinase.to data bryan [Ratio] in Serum or Plasma Creatine 0.0 - 3.6 ng/mL Normal No Jun 10 kinase.MB informati 2016 1:10 on in PM [Mass/vol source ume] in data Serum or Plasma Creatine 26 - 192 U/L Normal No Jun 10 kinase informati 2016 1:10 [Enzymati on in PM c source activity/ data volume] in Serum or Plasma Troponin 0.00 - ng/mL Normal No Jun 10 I.cardiac 0.06 informati 2016 1:10 on in PM [Mass/vol source ume] in data Serum or Plasma Comprehensive metabolic 2000 panel in Serum or Plasma Observa Value Referen Units Interpr Notes Date ti ce etation Range Albumin/G 1.1 - 1.8 No Low No Jun 10 lobulin informati informati 2016 1:10 [Mass on in on in PM ratio] in source source Serum or data data Plasma Albumin 3.4 - 5.0 gm/dL Normal No Jun 10 [Mass/vol informati 2016 1:10 ume] in on in PM Serum or source Plasma data Alkaline 46 - 116 U/L Normal No Jun 10 phosphata informati 2016 1:10 se on in PM [Enzymati source c data activity/ volume] in Serum or Plasma Bilirubin 0.2 - 1.0 mg/dL Normal No Jun 10 .total informati 2016 1:10 [Mass/vol on in PM ume] in source Serum or data Plasma Urea 7 - 18 mg/dL Normal No Jun 10 nitrogen informati 2016 1:10 [Mass/vol on in PM ume] in source Serum or data Plasma Calcium 8.5 - mg/dL Normal No Jun 10 [Mass/vol 10.1 informati 2016 1:10 ume] in on in PM Serum or source Plasma data Chloride 98 - 107 mmoL/L Normal No Jun 10 [Moles/vo informati 2016 1:10 lume] in on in PM Serum or source Plasma data Carbon 21.0 - mmoL/L Normal No Jun 10 dioxide, 32.0 informati 2016 1:10 total on in PM [Moles/vo source lume] in data Serum or Plasma Creatinin 0.55 - mg/dL Normal No Jun 10 e 1.02 informati 2016 1:10 [Mass/vol on in PM ume] in source Serum or data Plasma Creatinin 50 - 200 ML/MIN Normal No Jun 10 e renal informati 2016 1:10 clearance on in PM source predicted data by Cockcroft -Gault formula Estimated 59- ML/MIN No REFERENCE Jun 10 informati RANGE: 2017 1:10 glomerula on in >60 PM r source ML/MIN/1. filtratio data 73 SQUARE n rate METERSIf (GF this patient is -A merican, then multiply theresult by 1.210. Globulin 1.3 - 3.2 gm/dL High No Jun 10 [Mass/vol informati 2016 1:10 ume] in on in PM Serum source data Glucose 74 - 106 mg/dL Normal No Jun 10 [Mass/vol informati 2016 1:10 ume] in on in PM Serum or source Plasma data Potassium 3.5 - 5.1 mmoL/L Normal No Jun 10 informati 2016 1:10 [Moles/vo on in PM lume] in source Serum or data Plasma Sodium 136 - 145 mmoL/L Normal No Jun 10 [Moles/vo informati 2016 1:10 lume] in on in PM Serum or source Plasma data Aspartate 15 - 37 U/L Normal No Jun 10 informati 2016 1:10 aminotran on in PM sferase source [Enzymati data c activity/ volume] in Serum or Plasma Alanine 12 - 78 U/L Normal No Jun 10 aminotran informati 2016 1:10 sferase on in PM [Enzymati source c data activity/ volume] in Serum or Plasma Protein 6.4 - 8.2 gm/dL Normal No Jun 10 [Mass/vol informati 2016 1:10 ume] in on in PM Serum or source Plasma data CBC W Auto Differential panel in Blood Observa Value Referen Units Interpr Notes Date tion ce etation Range Basophils 0 - 0.2 K/MM3 Normal No Jun 10 informati 2016 1:10 [#/volume on in PM ] in source Blood by data Automated count Basophils 0.1 - 2.0 % Normal No Jun 10 /100 informati 2016 1:10 leukocyte on in PM s in source Blood by data Automated count Eosinophi 0.0 - 0.4 K/mm3 High No Jun 10 ls informati 2016 1:10 [#/volume on in PM ] in source Blood by data Automated count Eosinophi 0.1 - % Normal No Jun 10 ls/100 12.0 informati 2016 1:10 leukocyte on in PM s in source Blood by data Automated count Granulocy 1.8 - 7.8 K/mm3 Normal No Jun 10 marylin informati 2016 1:10 [#/volume on in PM ] in source Blood by data Automated count Granulocy 37.0 - % Normal No Jun 10 marylin/100 80.0 informati 2016 1:10 leukocyte on in PM s in source Blood by data Automated count Hematocri 37.0 - % Normal No Jun 10 t [Volume 47.0 informati 2016 1:10 on in PM Fraction] source of Blood data Hemoglobi 12.2 - g/dL No No Jun 10 n 16.2 informati informati 2016 1:10 [Mass/vol on in on in PM ume] in source source Blood data data Lymphocyt 0.7 - 4.5 K/mm3 Normal No Jun 10 es informati 2016 1:10 [#/volume on in PM ] in source Unspecifi data ed specimen by Automated count Lymphocyt 10 - 50.0 % Normal No Jun 10 es informati 2016 1:10 [#/volume on in PM ] in source Unspecifi data ed specimen by Automated count Erythrocy 27 - 31.2 pg Normal No Jun 10 te mean informati 2016 1:10 corpuscul on in PM ar source hemoglobi data n [Entitic mass] Erythrocy 31.8 - g/dl Normal No Jun 10 te mean 35.4 informati 2016 1:10 corpuscul on in PM ar source hemoglobi data n concentra tion [Mass/vol ume] by Automated count Erythrocy 82.2 - fl Normal No Jun 10 te mean 97.8 informati 2016 1:10 corpuscul on in PM ar volume source [Entitic data volume] by Automated count Monocytes 0.1 - 1.0 K/mm3 Normal No Jun 10 informati 2016 1:10 [#/volume on in PM ] in source Blood by data Automated count Monocytes 1.7 - 9.3 % Normal No Jun 10 /100 informati 2016 1:10 leukocyte on in PM s in source Blood by data Automated count Platelet 7.4 - fl Normal No Jun 10 mean 10.4 informati 2016 1:10 volume on in PM [Entitic source volume] data in Blood by Automated count Platelets 142 - 424 K/mm3 Normal No Jun 10 inform2016 1:10 [#/volume on in PM ] in source Blood data Erythrocy 4.2 - 5.4 M/mm3 Normal No Jun 10 marylin informati 2016 1:10 [#/volume on in PM ] in source Amniotic data fluid Erythrocy 11.5 - % Normal No Jun 10 te 17.5 informati 2016 1:10 distribut on in PM ion width source [Entitic data volume] by Automated count Leukocyte 4.8 - K/MM3 Normal No Jun 10 s 10.8 informati 2016 1:10 [#/volume on in PM ] in source Blood data Cobalamin (Vitamin B12) [Mass/volume] in Serum Observa Value Referen Units Interpr Notes Date tion ce etation Range Cobalamin 211 - 946 pg/mL No Performed May 23 (Vitamin informati at: CB 2017 B12) on in - [facility] 10:00 AM [Mass/vol source ume] in data [id number] Serum [address] [place], [place] [id number] Internet Architect: Silvio Barrientos PhD, Phone: [phone] Comprehensive metabolic 2000 panel in Serum or Plasma Observa Value Referen Units Interpr Notes Date tion ce etation Range Albumin/G 1.1 - 1.8 No Normal No May 23 lobulin informati informati 2016 [Mass on in on in 10:00 AM ratio] in source source Serum or data data Plasma Albumin 3.4 - 5.0 gm/dL Normal No Oct 10 [Mass/vol informati 2017 ume] in on in 10:00 AM Serum or source Plasma data Alkaline 46 - 116 U/L Normal No May 10 phosphata informati 2017 se on in 10:00 AM [Enzymati source c data activity/ volume] in Serum or Plasma Bilirubin 0.2 - 1.0 mg/dL Normal No May 10 .total informati 2017 [Mass/vol on in 10:00 AM ume] in source Serum or data Plasma Urea 7 - 18 mg/dL High No May 10 nitrogen informati 2017 [Mass/vol on in 10:00 AM ume] in source Serum or data Plasma Calcium 8.5 - mg/dL Normal No May 10 [Mass/vol 10.1 informati 2017 ume] in on in 10:00 AM Serum or source Plasma data Chloride 98 - 107 mmoL/L Normal No May 10 [Moles/vo informati 2017 lume] in on in 10:00 AM Serum or source Plasma data Carbon 21.0 - mmoL/L Normal No May 10 dioxide, 32.0 informati 2017 total on in 10:00 AM [Moles/vo source lume] in data Serum or Plasma Creatinin 0.55 - mg/dL Normal No May 10 e 1.02 informati 2016 [Mass/vol on in 10:00 AM ume] in source Serum or data Plasma Estimated 59- ML/MIN No REFERENCE May 10 informati RANGE: 2017 glomerula on in >60 10:00 AM r source ML/MIN/1. filtratio data 73 SQUARE n rate METERSIf (GF this patient is -A merican, then multiply theresult by 1.210. Globulin 1.3 - 3.2 gm/dL Normal No May 10 [Mass/vol informati 2017 ume] in on in 10:00 AM Serum source data Glucose 74 - 106 mg/dL Normal No May 10 [Mass/vol informati 2017 ume] in on in 10:00 AM Serum or source Plasma data Potassium 3.5 - 5.1 mmoL/L Normal No May 10 informati 2017 [Moles/vo on in 10:00 AM lume] in source Serum or data Plasma Sodium 136 - 145 mmoL/L Normal No Oct 10 [Moles/vo informati 2017 lume] in on in 10:00 AM Serum or source Plasma data Aspartate 15 - 37 U/L Normal No Oct 10 informati 2017 aminotran on in 10:00 AM sferase source [Enzymati data c activity/ volume] in Serum or Plasma Alanine 12 - 78 U/L Normal No May 23 aminotran 2016 sferase on in 10:00 AM [Enzymati source c data activity/ volume] in Serum or Plasma Protein 6.4 - 8.2 gm/dL Normal No May 23 [Mass/vol 2016 ume] in on in 10:00 AM Serum or source Plasma data CBC W Auto Differential panel in Blood Observa Value Referen Units Interpr Notes Date tion ce etation Range Basophils 0 - 0.2 K/MM3 Normal No May [id number] [#/volume on in 10:00 AM ] in source Blood by data Automated count Basophils 0.1 - 2.0 % Normal No May [id number] leukocyte on in 10:00 AM s in source Blood by data Automated count Eosinophi 0.0 - 0.4 K/mm3 Normal No May 23 ls 2016 [#/volume on in 10:00 AM ] in source Blood by data Automated count Eosinophi 0.1 - % Normal No May 23 ls/100 12.0 2016 leukocyte on in 10:00 AM s in source Blood by data Automated count Granulocy 1.8 - 7.8 K/mm3 Normal No May 23 marylin 2016 [#/volume on in 10:00 AM ] in source Blood by data Automated count Granulocy 37.0 - % Normal No May 23 marylin/100 80.0 2016 leukocyte on in 10:00 AM s in source Blood by data Automated count Hematocri 37.0 - % Normal No May 23 t [Volume 47.0 2016 on in 10:00 AM Fraction] source of Blood data Hemoglobi 12.2 - g/dL Normal No May 23 n 16.2 inform2016 [Mass/vol on in 10:00 AM ume] in source Blood data Lymphocyt 0.7 - 4.5 K/mm3 Normal No May 23 es 2016 [#/volume on in 10:00 AM ] in source Unspecifi data ed specimen by Automated count Lymphocyt 10 - 50.0 % Normal No May 23 es inform2016 [#/volume on in 10:00 AM ] in source Unspecifi data ed specimen by Automated count Erythrocy 27 - 31.2 pg Normal No May 23 te mean inform2016 corpuscul on in 10:00 AM ar source hemoglobi data n [Entitic mass] Erythrocy 31.8 - g/dl Low No May 23 te mean 35.4 inform2016 corpuscul on in 10:00 AM ar source hemoglobi data n concentra tion [Mass/vol ume] by Automated count Erythrocy 82.2 - fl Normal No May 23 te mean 97.8 inform2016 corpuscul on in 10:00 AM ar volume source [Entitic data volume] by Automated count Monocytes 0.1 - 1.0 K/mm3 Normal No May 23 informati 2016 [#/volume on in 10:00 AM [...] 142 - 424 K/mm3 Normal No May 23 informati 2016 [#/volume on in 10:00 AM ] in source Blood data Erythrocy 4.2 - 5.4 M/mm3 Normal No May 23 marylin informati 2016 [#/volume on in 10:00 AM ] in source Amniotic data fluid Erythrocy 11.5 - % Normal No May 23 te 17.5 informati 2016 distribut on in 10:00 AM ion width source [Entitic data volume] by Automated count Leukocyte 4.8 - K/MM3 Normal No May 23 s 10.8 informati 2016 [#/volume on in 10:00 AM ] in source Blood data Cobalamin (Vitamin B12) [Mass/volume] in Serum Observa Value Referen Units Interpr Notes Date tion ce etation Range Cobalamin 211 - 946 pg/mL No Performed Feb 02 (Vitamin informati at: CB 2016 B12) on in - [facility] 10:30 AM [Mass/vol source ume] in data [address] [address] [address] [place], [place] [id number] Internet Architect: Silvio Barrientos PhD, Phone: [phone] 25-Hydroxyvitamin D [Mass/volume] in Serum or Plasma Observa Value Referen Units Interpr Notes Date tion ce etation Range 25-Hydrox 30.0 - ng/mL Low Vitamin D Feb 02 yvitamin 100.0 2017 D deficienc 10:30 AM [Mass/vol y has ume] in been Serum or defined Plasma by the [place] [facility] and an Endocrine Society practice guideline as alevel of serum 25-OH vitamin D less than 20 ng/mL (1,2).The Endocrine Society went on to further define vitamin Dinsuffic iency as a level between 21 and 29 ng/mL (2).1. IOM (Institut e of Medicine) . 2010. Dietary reference intakes for calcium and D. [place]: [employer].2. Merline MF, Jolie NC, Chai Reeves YBARRA, et al.Evalua tion, treatment , and preventio n of vitamin Ddeficien cy: an Endocrine Society clinical practiceg uideline. JCEM. 2010; 96(7):191 1-30. CBC W Auto Differential panel in Blood Observa Value Referen Units Interpr Notes Date tion ce etation Range Basophils 0 - 0.2 K/MM3 Normal No Feb 02 inform2016 [#/volume on in 10:30 AM ] in source Blood by data Automated count Basophils 0.1 - 2.0 % Normal No Feb 02 / inform2016 leukocyte on in 10:30 AM s in source Blood by data Automated count Eosinophi 0.0 - 0.4 K/mm3 Normal No Feb 02 ls informati 2016 [#/volume on in 10:30 AM ] in source Blood by data Automated count Eosinophi 0.1 - % Normal No Feb 02 ls/100 12.0 inform2016 leukocyte on in 10:30 AM s in source Blood by data Automated count Granulocy 1.8 - 7.8 K/mm3 Normal No Feb 02 marylin informati 2016 [#/volume on in 10:30 AM ] in source Blood by data Automated count Granulocy 37.0 - % Normal No Feb 02 marylin/100 80.0 inform2016 leukocyte on in 10:30 AM s in source Blood by data Automated count Hematocri 37.0 - % Normal No Feb 02 t [Volume 47.0 2016 on in 10:30 AM Fraction] source of Blood data Hemoglobi 12.2 - g/dL Normal No Feb 02 n 16.2 informati 2016 [Mass/vol on in 10:30 AM ume] in source Blood data Lymphocyt 0.7 - 4.5 K/mm3 Normal No Feb 02 es inform2016 [#/volume on in 10:30 AM ] in source Unspecifi data ed specimen by Automated count Lymphocyt 10 - 50.0 % Normal No Feb 02 es inform2016 [#/volume on in 10:30 AM ] in source Unspecifi data ed specimen by Automated count Erythrocy 27 - 31.2 pg Normal No Feb 02 te mean inform2016 corpuscul on in 10:30 AM ar source hemoglobi data n [Entitic mass] Erythrocy 31.8 - g/dl Normal No Feb 02 te mean 35.4 inform2016 corpuscul on in 10:30 AM ar source hemoglobi data n concentra tion [Mass/vol ume] by Automated count Erythrocy 82.2 - fl Normal No Feb 02 te mean 97.8 informati 2016 corpuscul on in 10:30 AM ar volume source [Entitic data volume] by Automated count Monocytes 0.1 - 1.0 K/mm3 Normal No Feb 02 inform2016 [#/volume on in 10:30 AM ] in source Blood by data Automated count Monocytes 1.7 - 9.3 % Normal No Feb 02 /100 2016 leukocyte on in 10:30 AM s [...] % Normal No Feb 02 te 17.5 inform2016 distribut on in 10:30 AM ion width [...] mmoL/L Normal No Feb 02 dioxide, 32.0 informati 2016 total on in 10:30 AM [Moles/vo source lume] in data Serum or Plasma Creatinin 0.55 - mg/dL Normal No Feb 02 e 1.02 informati 2016 [Mass/vol on in 10:30 AM ume] in source Serum or data Plasma Estimated 59- ML/MIN Low REFERENCE Feb 02 RANGE: 2017 glomerula >60 10:30 AM r ML/MIN/1. filtratio 73 SQUARE n rate METERSIf (GF this patient is -A merican, then multiply theresult by 1.210. Globulin 1.3 - 3.2 gm/dL Normal No Feb 02 [Mass/vol informati 2017 ume] in on in 10:30 AM Serum source data Glucose 74 - 106 mg/dL Normal No Feb 02 [Mass/vol informati 2016 ume] in on in 10:30 AM Serum or source Plasma data Potassium 3.5 - 5.1 mmoL/L Normal No Feb 02 informati 2016 [Moles/vo on in 10:30 AM lume] in source Serum or data Plasma Sodium 136 - 145 mmoL/L Normal No Feb 02 [Moles/vo informati 2016 lume] in on in 10:30 AM Serum or source Plasma data Aspartate 15 - 37 U/L Normal No Feb 02 inform2016 aminotran on in 10:30 AM sferase source [Enzymati data c activity/ volume] in Serum or Plasma Alanine 12 - 78 U/L Normal No Feb 02 aminotran informati 2016 sferase on in 10:30 AM [Enzymati source c data activity/ volume] in Serum or Plasma Protein 6.4 - 8.2 gm/dL Normal No Feb 02 [Mass/vol informati 2016 ume] in on in 10:30 AM Serum or source Plasma data Magnesium [Moles/volume] in Unspecified specimen Observa Value Referen Units Interpr Notes Date tion ce etation Range Magnesium 1.4 - 2.2 mg/dL Normal No Feb 022016 [Moles/vo on in 10:30 AM lume] in source Unspecifi data ed specimen Thyrotropin [Units/volume] in Serum or Plasma Observa Value Referen Units Interpr Notes Date tion ce etation Range Thyrotrop 0.358 - uIU/ml No No Feb 02 in 3.740 informati informati 2016 [Units/vo on in on in 10:30 AM [...] Sep 1 OR informa informa informa informa 2010 UATSDIN tion in tion in tion in tion [...] source source data data data data CHART [id number] No No No No Sep 1 NUMBER 5004/C1 informa informa informa informa 2010 [id number] tion in tion in tion in tion [...] accorda nce with the Health Insuran ce [place] lity and Account ability Act.
--- OUTSIDE RECORDS SUMMARY | 2017-06-29 12:07 | External Medical Summary Rpt ---
Author Author [employer], JARREDMARAT [employer] Organization [employer] Address Unknown Phone [...] 10:00 AM [Mass/vol source ume] in data [id number] Serum 0 [place], [place] [id number] Generator Repairer: Silvio Barrientos PhD, Phone: [phone] Comprehensive metabolic 2000 panel in Serum [...] 10:30 AM [Mass/vol source ume] in data [address] [address] Serum [address] [place], [place] [id number] Generator Repairer: Silvio Barrientos PhD, Phone: [phone] 25-Hydroxyvitamin D [Mass/volume] in Serum or Plasma Observa Value Referen Units Interpr Notes Date tion ce etation Range 25-Hydrox 30.0 - ng/mL Low Vitamin D Feb 02 yvitamin 100.0 2017 D deficienc 10:30 AM [Mass/vol y has ume] in been Serum or defined Plasma by the [place] [facility] and an Endocrine Society practice guideline as alevel of serum 25-OH vitamin D less than 20 ng/mL (1,2).The Endocrine Society went on to further define vitamin Dinsuffic iency as a level between 21 and 29 ng/mL (2).1. IOM (Institut e of Medicine) . 2010. Dietary reference intakes for calcium and D. [place]: [employer] Press.2. Merline MF, Jolie NC, Chai Reeves [...] 1 OR informa informa informa informa 2010 ANABAPTISM tion in tion in tion in tion [...] source source data data data data CHART [id number] No No No No Sep 1 NUMBER 5004/C1 informa informa informa informa 2010 [id number] tion in tion in tion in tion [...]
[2017-06-29 12:55] LABS: URINE BILIRUBIN - DIPSTICK NEGATIVE (NEG); URINE BLOOD NEGATIVE (NEG)
--- NOTE | 2017-06-29 13:13 | RADIOLOGY REPORT PS360 ---
CT ABD PELVIS W/O CONTRAST CLINICAL INDICATION: Left lower quadrant pain, diverticulitis LLQ PAIN ORDERING PHYSICIAN: Henrry Randhawa MD PATIENT AGE: 76 years COMPARISON: 02/09/2017 Lower chest: Centrilobular emphysematous change with pulmonary fibrosis. Prior cholecystectomy. The liver, spleen, adrenal glands, and pancreas have an unremarkable appearance. No renal calculi or ureteral calculi. There is a 3 cm right renal cyst and there is some cortical scarring of the upper pole the left kidney. No aneurysm, abdominal mass, or adenopathy. No evidence of diverticulitis or appendicitis. There are fluid-filled loops of small and large bowel nondistended and could be due to gastroenteritis. No obvious bowel wall thickening apparent. There has been prior hysterectomy. No acute bony anomalies. IMPRESSION: 1. No evidence of diverticulitis. 2. Possible gastroenteritis. 3. Other nonacute findings as described above
[2017-06-29 17:26] VITALS: BP 121/61
== END 2017-06-29 17:28 | disposition home or self-care (01) ==
LOC: ER 11:34
PROVIDERS: Emergency Medicine
DX: A08.4 Viral intestinal infection, unspecified (principal); Z88.8 Allergy status to other drugs, medicaments and biological substances; Z79.82 Long term (current) use of aspirin; J44.9 Chronic obstructive pulmonary disease, unspecified; E78.5 Hyperlipidemia, unspecified; R11.0 Nausea; N39.0 Urinary tract infection, site not specified; B96.20 Unspecified Escherichia coli [E. coli] as the cause of diseases classified elsewhere
CPT/HCPCS: J2405